=== PATIENT | female | born 1970 | race African-American/Black ===

== ENCOUNTER 2023-10-17 19:41 | Inpatient (IN) | payer MEDICAID, SELFPAY ==
[2023-10-17] VITALS (25 sets, daily range): BP systolic 120–186; BP diastolic 82–117; PULSE 78–103; RESP 10–26; TEMP 36.3–37; O2SAT 94–100
--- NOTE | ~2023-10-17 | CT_ITS ---
CTA chest PE abdomen pel Ordering provider: Kris Nixon DO History: . cardiac arrest . Comparison: None. Technique: CT angiogram chest was performed following timed intravenous injection of contrast. Thin s lice axial images and reformatted coronal images were obtained. Three dimensional reformatted images of the chest were also obtained using a [employer] workstation. Also, CT of the abdomen and pelvis was pe rformed with IV contrast. . Automated exposure control and iterative reconstruction technique were e mployed. The dose-length product was 681.00 mGy-cm. 100 mL Omnipaque 350 was given IV. FINDINGS: CHEST: --PULMONARY ARTERIES: No pulmonary embolus. --VISUALIZED THORACIC INLET: Normal. Endotracheal and nasogastric tube are seen passing through the trachea and the stomach. --MEDIASTINUM: Aorta/coronary arteries: Mild atheromatous disease. Heart/other: The heart is slightly enlarged. Left ventricular hypertrophy is noted. Lymph nodes: No mediastinal or hilar adenopathy. --LUNGS: Bilateral atelectatic changes in the upper lobes posteriorly with right basal subsegmental pneumonia. No pulmonary nodules or masses. No effusion or pneumothorax. --MUSCULOSKELETAL: Bones: Age appropriate degenerative changes of the spine. Superficial soft tissues: The superficial soft tissues are normal. ABDOMEN/PELVIS: --MUSCULOSKELETAL: Superficial soft tissues: The superficial soft tissues are normal. Bones: Age appropriate degenerative changes of the spine. --UPPER ABDOMINAL ORGANS: Liver: Normal. Gallbladder: Normal. Spleen: Normal. Stomach/duodenum: Normal. Pancreas: Normal. Adrenals: Adenoma in the right adrenal measuring 1.2 cm. No follow-up is needed unless clinical pam cations is present. Kidneys: Tiny cyst in the right kidney upper pole. --PELVIC ORGANS: The bladder is underfilled. The uterus and ovaries are unremarkable. --BOWEL AND MESENTERY: Colon: No evidence of diverticulitis. Normal appendix. Small Bowel: Normal. No obstruction. Peritoneum/mesentery: No free air or free fluid. No mesenteric lymphadenopathy. --RETROPERITONEUM: Mild atheromatous disease of the abdominal aorta. No retroperitoneal lymphadenop athy. Small para-aortic lymph nodes. IMPRESSION: CHEST: 1. No pulmonary embolism. 2. Bilateral atelectatic changes in the upper lobes. 3. Bibasilar subsegmental pneumonia more on the right side. 4. Cardiomegaly with left ventricular hypertrophy. ABDOMEN/PELVIS: 1. No acute abdominal process with no evidence of appendicitis, diverticulitis or intestinal obstruc tion. Reviewed, dictated and finalized at location A. IMPRESSION: CHEST: 1. No pulmonary embolism. 2. Bilateral atelectatic changes in the upper lobes. 3. Bibasilar subsegmental pneumonia more on the right side. 4. Cardiomegaly with left ventricular hypertrophy. ABDOMEN/PELVIS: 1. No acute abdominal process with no evidence of appendicitis, diverticulitis or intestinal obstruction.
--- NOTE | ~2023-10-17 | CT_ITS ---
CT cervical spine wo con Ordering provider: Kris Nixon History: . Unresponsive . Comparison: None. Technique: CT of the cervical spine was performed without contrast. Sagittal and coronal reformatted images were also obtained and reviewed. Automated exposure control and iterative reconstruction teodora hnique were employed. The dose-length product was 681.00 mGy-cm. FINDINGS: Endotracheal tube and nasogastric tube is noted. VERTEBRAE: No subluxation or acute fracture. The occipital condyles are intact. Degenerative changes of the spine. DISC SPACES: Narrowing of the disc C5-C6 and C6-C7. Multilevel uncovertebral joint osteoarthritic anastasia nges. Multilevel intervertebral foraminal narrowing. PARASPINOUS SOFT TISSUES: Normal. Atelectatic changes in the lungs versus pneumonia. Emphysematous changes. IMPRESSION: No acute osseous abnormality cervical spine. Reviewed, dictated and finalized at location A.
--- NOTE | ~2023-10-17 | XR_ITS ---
MODIFIED ESOPHAGRAM HISTORY: Assess swallowing function post cardiac arrest and pneumonia. TECHNIQUE: Modified barium esophagram was performed on 10/23/2023. I administered fluoroscopy and perf ormed the exam with speech pathologist. Patient was seated for lateral fluoroscopic imaging for jim stion of thin liquids, pudding, solids and quantified amounts, followed by thin liquids in uncontroll ed amounts. This was recorded on tape. A single fluoroscopic spot image was also recorded. The DAP fo r this procedure was 1.97 Gycm2. The amount of fluoroscopy time used during this procedure was 1.8 mi nutes. FINDINGS: Oral stage: Adequate function. Pharyngeal stage: Trace amount of flash laryngeal penetration without aspiration with uncontrolled th in liquids. Cervical/esophageal stage: Adequate function. IMPRESSION: Trace amount of flash laryngeal penetration without aspiration with uncontrolled thin liq uids. Please correlate with speech pathologist findings and specific feeding recommendations. Reviewed, dictated and finalized at location A. IMPRESSION: Trace amount of flash laryngeal penetration without aspiration with uncontrolled thin liquids. Please correlate with speech pathologist findings and specific feeding recommendations.
--- NOTE | ~2023-10-17 | XR_ITS ---
EXAMINATION: XR chest 1V portable DATE: 10/19/2023 05:44 INDICATION: Pneumonia. Cardiac arrest. TECHNIQUE: A single frontal view of the chest was obtained. COMPARISON: Chest single view 10/18/23, chest CT 10/17/2023 FINDINGS: There are airspace opacities in the mid and lower lung zones. No pleural effusion or pneumo thorax. Cardiomegaly is noted. The nasogastric tube tip is beyond the inferior margin of the radiogra ph, but at least to the stomach. The endotracheal tube tip is 2.7 cm above the brown. IMPRESSION: 1. Worsened airspace opacities in the mid and lower lung zones, consistent with atelectasis versus pn eumonia. 2. Cardiomegaly. Reviewed, dictated and finalized at location E. IMPRESSION: 1. Worsened airspace opacities in the mid and lower lung zones, consistent with atelectasis versus pneumonia. 2. Cardiomegaly.
--- NOTE | ~2023-10-17 | XR_ITS ---
XR chest ET placement Ordering provider: Kris Nixon DO History: 53 years Female with . CARDIAC ARREST . Comparison: None. FINDINGS: MEDIASTINUM: The cardiac silhouette is cardiomegaly. Congestive nicolasa. Endotracheal tube with the tip above the rbown by about 3.5 cm. LUNGS: No pneumothorax. Bilateral interstitial and alveolar ossification suggestive of pulmonary lamonte a. Superimposed infection cannot be excluded. OTHER: No free air under the diaphragm. Nasogastric tube with the tip in the fundus of the stomach and the sidehole at the gastroesophageal j unction. IMPRESSION: Cardiomegaly with cardiac decompensation and pulmonary edema. Underlying infection cannot be excluded . Reviewed, dictated and finalized at location A. IMPRESSION: Cardiomegaly with cardiac decompensation and pulmonary edema. Underlying infect ion cannot be excluded.
--- NOTE | ~2023-10-17 | XR_ITS ---
EXAMINATION: XR chest 1V portable DATE: 10/18/2023 08:24 INDICATION: Cardiac arrest. Mechanical ventilation. TECHNIQUE: A single frontal view of the chest was obtained. COMPARISON: Chest view 10/17/2023, chest CT 10/17/2023 FINDINGS: There air airspace opacities in the mid and lower lung zones. No pleural effusion. Cardiome marcy is noted. The endotracheal tube tip is 4.4 cm above the brown. The nasogastric tube tip is in t he stomach. IMPRESSION: 1. Persistent airspace opacities in the mid and lower lung zones, consistent with pneumonia. 2. Cardiomegaly. Reviewed, dictated and finalized at location A. IMPRESSION: 1. Persistent airspace opacities in the mid and lower lung zones, consistent wi th pneumonia. 2. Cardiomegaly.
--- NOTE | ~2023-10-17 | XR_ITS ---
Portable chest x-ray Comparison: 10/20/2023 Clinical History: Pneumonia Findings: Endotracheal tube and NG tube are in place. There is mild bilateral pulmonary haziness. C ardiomediastinal silhouette is stable. Bones and soft tissues are unremarkable. Impression: Probable mild bilateral pulmonary edema. Support tubes, as above. Reviewed, dictated and finalized at location . Impression: Probable mild bilateral pulmonary edema. Support tubes, as above.
--- NOTE | ~2023-10-17 | XR_ITS ---
EXAMINATION: XR abdomen gastric tube insert DATE: 10/17/2023 19:58 INDICATION: Cardiac arrest. Orogastric tube placement. TECHNIQUE: A supine view of the abdomen and lower chest was obtained for evaluation of feeding tube placement. COMPARISON: None. FINDINGS: Orogastric tube tip in proximal side port in the body of the stomach. No dilated loops of gas-filled bowel in the visualized upper abdomen to suggest obstruction. Opacities in the right lower lung zone which represent atelectasis, pulmonary edema or pneumonia. Cardiomegaly. IMPRESSION: 1. Orogastric tube with tip in proximal side port in the body of the stomach. 2. Opacities in the right lower lung zone which could represent atelectasis or pneumonia. 3. Cardiomegaly. Reviewed, dictated and finalized at location A.
--- NOTE | ~2023-10-17 | XR_ITS ---
Portable chest x-ray Comparison: 10/19/2023 Clinical History: Pneumonia Findings: Endotracheal tube and NG tube are in satisfactory positions. Extensive hazy pulmonary dise ase is present. Cardiomediastinal silhouette is stable. Bones and soft tissues are unremarkable. Impression: Extensive hazy pulmonary disease, similar to prior exam. Support tubes, as above. Reviewed, dictated and finalized at location . Impression: Extensive hazy pulmonary disease, similar to prior exam. Support tubes, as above.
--- NOTE | ~2023-10-17 | XR_ITS ---
Portable chest x-ray Comparison: 10/22/2023 Clinical History: Pneumonia, cardiac arrest Findings: There is improving hazy bibasilar/perihilar airspace disease. Possible minimal right pleur al effusion. Cardiomediastinal silhouette is stable. Bones and soft tissues are unremarkable. Impression: Improving hazy bibasilar/perihilar airspace disease. Minimal right pleural effusion. Reviewed, dictated and finalized at location . Impression: Improving hazy bibasilar/perihilar airspace disease. Minimal right pleural effusion.
--- NOTE | ~2023-10-17 | CT_ITS ---
CT brain wo con Ordering provider: Kris Nixon DO History: 53 years Female with . Unresponsive . Comparison: None. Technique: CT of the head without contrast. The dose-length product was 681 mGy-cm.. FINDINGS: Endotracheal and nasogastric tube are noted. BRAIN PARENCHYMA AND CSF SPACES: No midline shift, mass effect or hemorrhage. The brain parenchyma a nd CSF spaces are otherwise normal. VISUALIZED PARANASAL SINUSES: Left maxillary sinus disease. Bilateral ethmoid sinus disease. MASTOIDS : Well aerated. BONES: The bones appear intact. SOFT TISSUES: Visualized nasopharynx is normal. Superficial soft tissues are normal. IMPRESSION: No acute intracranial findings. Reviewed, dictated and finalized at location A.
--- NOTE | ~2023-10-17 | XR_ITS ---
Portable chest x-ray Comparison: 10/21/2023 Clinical History: Pneumonia, cardiac arrest Findings: Endotracheal tube and NG tube are in satisfactory positions. Small lateral pleural effusio ns are present. There is hazy bibasilar/perihilar airspace disease. Cardiomediastinal silhouette is stable. Bones and soft tissues are unremarkable. Impression: Bibasilar pulmonary edema versus pneumonia. Correlate clinically. Small pleural effusions. Support tubes, as above. Reviewed, dictated and finalized at location . Impression: Bibasilar pulmonary edema versus pneumonia. Correlate clinically. Small pleural effusions. Support tubes, as above.
--- NOTE | 2023-10-17 19:43 | ECG_ITS ---
Test Date: 2023-10-17 19:43:07 Measurements Intervals [place] Rate: 92 P: 62 CT: 169 QRS: -9 QRSD: 154 T: 130 QT: 432 QTc: 537 Interpretive Statements SINUS RHYTHM POSSIBLE RIGHT ATRIAL ENLARGEMENT LEFT ATRIAL ENLARGEMENT RIGHT BUNDLE BRANCH BLOCK ABNORMAL ECG No previous ECG available for comparison Electronically Signed On 10-18-2023 14:20:51 CDT by Casey Lopez D.O.
[2023-10-17] MEDS: FENTANYL 2,500MCG/NS250ML(*CRX 2,500 MCG/250 ML BAG IV CONT (19:52)
--- NOTE | 2023-10-17 19:52 | ED.CPR ---
HPI - CPR General Chief Complaint: Cardiac Arrest/CPR Stated Complaint: arrest Time Seen by Provider: 10/17/23 19:47 Source: EMS Mode of arrival: EMS Limitations: clinical condition History of Present Illness HPI narrative: Patient is a 53-year-old female presents to the emergency department via EMS for a witnessed arrest. Patient was witnessed to collapse by bystander, EMS noted a down time a few minutes prior to arrival and they performed 2 rounds of CPR and 1 shock was advised and patient obtain Sharon, an eye gel was placed, and IO was also placed in addition to a peripheral IV no patient did receive 150 of amiodarone and was transported to the ER. Unknown past medical history. Related Data Allergies Allergy/AdvReac Type Severity Reaction Status Date / Time No Known Allergies Allergy Verified 10/17/23 22:52 Review of Systems Review of Systems: ROS unobtainable: Yes unobtainable due to endotracheal tube, unobtainable due to medical condition and unobtainable due to mental status PMF Past Medical History Medical History (Updated 10/18/23 @ 07:34 by Kris Nixon DO) Anxiety Essential hypertension Comments At time of signature, I have reviewed and agree with nursing past medical, surgical, social and family history unless otherwise noted. Please see the nursing chart for further information. There is no relevant family history pertinent to the presenting complaint. Exam Narrative: CONST: Unresponsive, I-gel in place with bagging, IO in the tibia. HENMT: Head is normocephalic and atraumatic. Moist mucous membranes. EYES: No conjunctival icterus, injection, or pallor. PERRL. Gaze is midline. NECK: Trachea is midline. RESP: Diffuse rales in all lung murphy. CARDIO: Regular rate. Regular rhythm. 2+ DP and radial pulses bilaterally. GI: Nondistended. No tenderness to palpation. Soft. SKIN: No rashes or lesions noted on exposed skin. NEURO: Not withdrawing to noxious stimuli in any extremity. Pupils are 2-3 mm bilaterally equal round reactive to light. Bilateral upper extremities are contracted in decorticate posturing. Not following any commands. EXTREM/MSK/BACK: No pedal edema. No signs of trauma. Course Vital Signs Vital signs: Vital Signs Pulse Rate 86 10/17/23 19:45 Respiratory Rate 15 10/17/23 19:45 Blood Pressure 154/86 H 10/17/23 19:45 Pulse Oximetry 100 10/17/23 19:45 Oxygen Delivery Mechanical Ventilation 10/17/23 19:45 Oxygen Flow Rate 15 10/17/23 19:45 Temperature 96.6 F L 10/18/23 06:01 Pulse Rate 90 10/18/23 06:01 Respiratory Rate 10 L 10/18/23 06:01 Blood Pressure 152/101 H 10/18/23 06:01 Pulse Oximetry 96 10/18/23 06:01 Oxygen Delivery Mechanical Ventilation 10/18/23 05:34 Oxygen Flow Rate 15 10/18/23 04:00 Fraction of Inspired Oxygen 40 10/18/23 05:34 Procedures Intubation Intubation #1: Intubation Date: 10/17/23 Intubation Time: 19:30 Time out performed: No sedative: Etomidate paralytic: Succinylcholine Laryngoscope: fiber optic video scope Tube Size (cm): 7.5 Method of Intubation: orotracheal Number of Attempts: 1 Tube Secured Depth (cm): 22 Tube Secured Location: lips Tube Placement Confirmation: visualized tube passing through cords, equal breath sounds bilaterally, no breath sounds over epigastrium and confirmation by capnometry Patient Tolerated Procedure: no complications Intubation Complications: none MDM - Cardiac Arrest/CPR MDM Narrative Medical decision making narrative: EMR reviewed. Patient presented to the ED via EMS in cardiopulmonary arrest. EMS reports down time a few minutes prior to their arrival, AED shocks x1, interventions I gel and IO and peripheral IV and amiodarone and epinephrine. Patient was placed on the monitor. CPR was continued without interruption in accordance with ACLS guidelines. Airway
[2023-10-17] MEDS: MIDAZOLAM 100MG/NS 100ML(*CRX) 100 MG/100 ML BAG IV CONT (20:07)
[2023-10-17 20:09] LABS: Basophils Absolute Auto 0.1 K/mm3 (0.0-0.1); Basophils Percent Auto 0.7 % (0.2-1.2); Eosinophils Absolute Auto 0.2 K/mm3 (0-0.3); Hematocrit 36.7 % (37.0-47.0); Hemoglobin 11.9 g/dL (12.0-15.0); Immature Granulocyte Absolute 0.05 K/mm3 (0.00-0.031); Immature Granulocyte Percent A 0.6 % (0-0.5); Lymphocytes Absolute Auto 3.48 K/mm3 (0.9-3.2); Lymphocytes Percent Auto 43.4 % (18.3-44.2); Mean Corpuscular HGB Conc 32.4 g/dl (32-36); Mean Corpuscular Hemoglobin 29.3 pg (26-34); Mean Corpuscular Volume 90.4 fl (80-100); Mean Platelet Volume 9.5 fl (7.4-10.4); Monocytes Absolute Auto 0.5 K/mm3 (0.1-0.6); Monocytes Percent Auto 6.1 % (2.6-8.5); Neutrophils Absolute Auto 3.8 K/mm3 (1.3-6.7); Neutrophils Percent Auto 47.2 % (45.5-73.1); Platelet Count Result 387 k/mm3 (150-375); Red Blood Count 4.06 M/mm3 (4.2-5.4); Red Cell Distribution Width 13.6 % (11.5-14.5)
[2023-10-17 20:20] LABS: INR 1.1; Partial Thromboplastin Time 26.7 Seconds (22.3-36.8); Prothrombin Time 14.8 Seconds (11.1-14.7)
[2023-10-17 20:26] LABS: Estimated Glomerular Filt Rate 47
[2023-10-17 20:26] LABS: Acetaminophen < 10 ug/mL (10-30); Alanine Aminotransferase 78 U/L (6-35); Albumin Level 3.7 g/dL (3.5-5.1); Alkaline Phosphatase 70 U/L (38-126); Anion Gap 10 mmol/L (4-12); Aspartate Amino Transferase 182 U/L (14-36); Bilirubin,Total 0.8 mg/dL (0.2-1.3); Blood Urea Nitrogen 20 mg/dL (7-17); CRP 1.6 mg/dL (<1.0); Calcium 8.2 mg/dL (8.4-10.2); Carbon Dioxide 25 mmol/L (22-30); Chloride 105 mmol/L (98-107); Creatine Kinase 126 U/L (30-135); Estimated Glomerular Filt Rate 52; Ethanol < 10 mg/dL (<10); Glucose 148 mg/dL (65-110); Lipase 129 U/L (23-300); Magnesium 1.9 mg/dL (1.6-2.3); Potassium 3.2 mmol/L (3.4-5.0); Salicylate < 1.0 mg/dL (2-20); Sodium 140 mmol/L (137-145)
[2023-10-17 20:36] LABS: NT Pro B Type Natriuretic Pept 7770 pg/mL (19.9-100); Troponin I 0.053 ng/mL (0.000-0.034)
[2023-10-17 20:37] LABS: Lactic Acid Reflex 4.1 mmol/L (0.7-2.0)
[2023-10-17 20:49] LABS: SPREG INTERNAL CONTROL Positive; Serum Qual hCG Negative
[2023-10-17] MEDS: KCL 20 MEQ/SW 100 ML 100 ML 50 MEQ IVPB (21:02)
[2023-10-17] MEDS: AZITHROMYCIN 500 MG/NS 250 ML 500 MG/250 ML BAG 250 MG IVPB (21:29)
[2023-10-17] MEDS: SODIUM CHLORIDE 0.9% IV 1,000 ML 999 ML IV CONT ×2 (21:37→22:33)
[2023-10-17] MEDS: cefTRIAXone 2 GM/NS 100 ML 2 GM/100 ML BAG IVPB (21:43)
[2023-10-17 21:44] LABS: Free T4 Free Thyroxine Reflex 1.06 ng/dL (0.78-2.19)
--- NOTE | 2023-10-17 21:50 | ECG_ITS ---
Test Date: 2023-10-17 20:45:49 Measurements Intervals [place] Rate: 79 P: 62 [place]: 170 QRS: -14 QRSD: 157 T: 118 QT: 499 QTc: 574 Interpretive Statements SINUS RHYTHM POSSIBLE RIGHT ATRIAL ENLARGEMENT LEFT ATRIAL ENLARGEMENT RIGHT BUNDLE BRANCH BLOCK BORDERLINE ST-T WAVE ABNORMALITY- ANTEROLATERAL LEADS ABNORMAL ECG Compared to ECG 10/17/2023 19:43:07 NO SIGNIFICANT CHANGE Electronically Signed On 10-18-2023 14:21:38 CDT by Casey Lopez D.O.
--- NOTE | 2023-10-17 22:00 | ECG_ITS ---
Test Date: 2023-10-17 21:29:34 Measurements Intervals [place] Rate: 79 P: 61 [place]: 164 QRS: -2 QRSD: 109 T: 152 QT: 463 QTc: 532 Interpretive Statements SINUS RHYTHM LEFT ATRIAL ENLARGEMENT LEFT VENTRICULAR HYPERTROPHY AND ST-T CHANGE ST-T WAVE ABNORMALITY IN ANTEROLATERIOR LEADS- CONSIDER ISCHEMIA BASELINE ARTIFACT- II, V4-V5 ABNORMAL ECG No previous ECG available for comparison Electronically Signed On 10-18-2023 07:34:44 CDT by Casey Lopez D.O.
[2023-10-17 22:14] LABS: Glucose Point of Care 79 mg/dl (65-105)
[2023-10-17 22:19] LABS: Alveolar/Arterial O2 Gradient 220.1 mmHg; Base Excess ABG -4.5 mEq/l (+/-2.0); Fractional Inspired Oxygen 50 %; HCO3 ABG 20.5 mEq/l (22.0-26.0); Oxygen Content ABG 16.2 %vol (16.0-22.0); Oxygen Saturation ABG 96.9 % (95.0-100.0); PCO2 ABG 37.6 mmHg (35.0-45.0); PO2 ABG 94.1 mmHg (80.0-100.0); PO2 FiO2 Ratio Arterial Blood 1.88 %; Total Hemoglobin 11.9 g/dL (12.0-18.0); pH ABG 7.354 (7.350-7.450)
[2023-10-17 22:20] LABS: Device VENTILATOR; Modified Allen's Test Pass; Site Drawn RIGHT RADIAL
[2023-10-17 22:21] LABS: Arterial Blood Gas PEEP 5 cmH2O; Arterial Blood Gas Tidal Volume 400 ml; Arterial Blood Gas Vent Mode CMV; Arterial Blood Gas Ventilator rate 15 /MIN
[2023-10-17 22:22] LABS: Creatine Kinase 128 U/L (30-135)
[2023-10-17 22:24] LABS: Total Triiodothyronine (T3) 1.05 NG/ML (0.97-1.69)
[2023-10-17 22:30] LABS: Influenza A QL RT-PCR Negative (Negative); Influenza B QL RT-PCR Negative (Negative); RSV RNA, RT-PCR Negative (Negative); SARS-CoV-2 RNA PCR Negative (Negative)
[2023-10-17] MEDS: RAPID SEQUENCE INTUBATION KIT 1 EACH (22:33)
--- NOTE | 2023-10-17 22:34 | PC.NURSE ---
7.5 ETT tube placed by Dr. Nixon at 1942 with 23 at the lip. Respiratory at bedside. Confirmed with colormetric device, auscultation by EDP, and Xray.
[2023-10-17 23:05] LABS: Reflex Lactic Acid Yes or No Add Lactic
[2023-10-17 23:14] LABS: MRSA (PCR) NOT DETECTED (NOT DETECTE)
--- NOTE | 2023-10-17 23:47 | ADMGEN ---
This patient, Fouzia Mccullough, was admitted to Intensive Care Unit-1 at 2315. Patient/family oriented to hospital policies and general routines including ID bracelet, bed and alarms, visiting hours, pain management, procedures, bathroom and other care routines, personal items, smoking policy, room service/diet, and visiting hours. Information on how to activate the Rapid Response Team has been discussed. Patient/Family are encouraged to report perceived risks to care and to ask questions if they do not understand what they are told or what they should do.
--- NOTE | 2023-10-17 23:47 | PC.NURSE ---
[id number] Alvarado stated he wants ICU to have hypothermia protocol. Clarified goal temperature and Dr Alvarado states 36C.
[2023-10-17] MEDS: HEPARIN SOD/D5W 100 UNITS/ML 25,000 UNITS/250 ML BAG 10 UNITS IV CONT (23:51)
[2023-10-17] MEDS: VANCOMYCIN 1,250 MG/NS 250 ML 1,250 MG/250 ML BAG 166.67 MG IVPB (23:58)
[2023-10-18] VITALS (76 sets, daily range): BP systolic 106–179; BP diastolic 80–142; PULSE 72–101; RESP 10–21; TEMP 34.4–37.7; O2SAT 96–100
[2023-10-18] MEDS: MINERAL OIL/WHITE PETROLATUM OINTMENT 1 APPLIC EACH EYE ×3 (00:27→21:11)
[2023-10-18 00:31] LABS: Appearance Urine Clear (Clear); Bacteria Urine Rare /hpf; Bilirubin Urine Negative (Negative); Blood Urine 1+ (Negative); Color Urine Yellow (Yellow); Glucose Urine UA Trace mg/dL (Negative); Ketones Urine Negative (Negative); Leukocyte Esterase Ur Negative LEU/UL (Negative); Nitrate Urine Negative (Negative); Protein Urine 2+ mg/dL (Negative); Specific Grav Ur 1.018 (1.001-1.035); Squamous Epithelial Cell Urine Occasional /hpf (Few); Urobilinogen Urine 0.2 mg/dL (<2.0)
[2023-10-18 00:34] LABS: Need Manual Microscopic Reviewed
[2023-10-18 00:45] LABS: Amphetamine Screen Urine Negative (Negative); Barbiturate Screen Urine Negative (Negative); Benzodiazepines Screen Urine Positive (Negative); Cannabinoid Screen Urine Negative (Negative); Cocaine Screen Urine Negative (Negative); Methadone Screen Urine Negative (Negative); Opiate Screen Urine Negative (Negative); Phencyclidine Screen Urine Negative (Negative)
[2023-10-18 00:46] LABS: INR 1.1; Prothrombin Time 14.9 Seconds (11.1-14.7)
[2023-10-18 00:47] LABS: Partial Thromboplastin Time 25.5 Seconds (22.3-36.8)
[2023-10-18 01:03] LABS: Alanine Aminotransferase 126 U/L (6-35); Albumin Level 4.7 g/dL (3.5-5.1); Alkaline Phosphatase 101 U/L (38-126); Anion Gap 12 mmol/L (4-12); Aspartate Amino Transferase 252 U/L (14-36); Bilirubin,Total 0.6 mg/dL (0.2-1.3); Blood Urea Nitrogen 19 mg/dL (7-17); Calcium 8.5 mg/dL (8.4-10.2); Carbon Dioxide 23 mmol/L (22-30); Chloride 108 mmol/L (98-107); Creatine Kinase 185 U/L (30-135); Estimated CRCL calculation 49 ml/min; Estimated Glomerular Filt Rate 44; Glucose 103 mg/dL (65-110); Magnesium 2.1 mg/dL (1.6-2.3); Potassium 3.4 mmol/L (3.4-5.0); Sodium 143 mmol/L (137-145)
[2023-10-18 01:05] LABS: Lactic Acid Reflex 5.5 mmol/L (0.7-2.0)
[2023-10-18 01:06] LABS: Add Urine Microscopic? YES
[2023-10-18 01:07] LABS: Amphetamine Screen Urine Negative (Negative); Barbiturate Screen Urine Negative (Negative); Benzodiazepines Screen Urine Positive (Negative); Cocaine Screen Urine Negative (Negative); Methadone Screen Urine Negative (Negative); Opiate Screen Urine Negative (Negative)
[2023-10-18 01:08] LABS: Cannabinoid Screen Urine Negative (Negative); Phencyclidine Screen Urine Negative (Negative)
[2023-10-18 01:15] LABS: Glucose Point of Care 105 mg/dl (65-105)
[2023-10-18 01:17] LABS: Troponin I 0.081 ng/mL (0.000-0.034)
[2023-10-18] MEDS: VANCOMYCIN 1,250 MG/NS 250 ML 1,250 MG/250 ML BAG 166.67 MG IVPB (01:35)
[2023-10-18 02:14] LABS: Alveolar/Arterial O2 Gradient 179.2 mmHg; Base Excess ABG -1.9 mEq/l (+/-2.0); Carboxyhemoglobin 0.2 % THb (0-2.0); Fractional Inspired Oxygen 50 %; HCO3 ABG 25.5 mEq/l (22.0-26.0); Oxygen Content ABG 18.4 %vol (16.0-22.0); Oxygen Saturation ABG 97.7 % (95.0-100.0); Oxyhemoglobin 97.8 % THb (90.0-100.0); PCO2 ABG 54.5 mmHg (35.0-45.0); PO2 FiO2 Ratio Arterial Blood 2.32 %; Total Hemoglobin 13.3 g/dL (12.0-18.0)
[2023-10-18 02:16] LABS: Device VENTILATOR; Modified Allen's Test Pass; Site Drawn RIGHT RADIAL; pH ABG 7.288 (7.350-7.450)
[2023-10-18 02:17] LABS: Arterial Blood Gas PEEP 5 cmH2O; Arterial Blood Gas Tidal Volume 400 ml; Arterial Blood Gas Vent Mode CMV; Arterial Blood Gas Ventilator rate 15 /MIN
[2023-10-18 03:06] LABS: Glucose Point of Care 97 mg/dl (65-105)
[2023-10-18 03:06] LABS: Glucose Point of Care 104 mg/dl (65-105)
[2023-10-18 03:36] LABS: Basophils Absolute Auto 0.1 K/mm3 (0.0-0.1); Basophils Percent Auto 0.4 % (0.2-1.2); Eosinophils Percent Auto 0.1 % (0-4.4); Hematocrit 41.6 % (37.0-47.0); Hemoglobin 12.9 g/dL (12.0-15.0); Immature Granulocyte Absolute 0.06 K/mm3 (0.00-0.031); Immature Granulocyte Percent A 0.5 % (0-0.5); Lymphocytes Absolute Auto 1.48 K/mm3 (0.9-3.2); Lymphocytes Percent Auto 11.4 % (18.3-44.2); Mean Corpuscular Hemoglobin 29.3 pg (26-34); Mean Corpuscular Volume 94.3 fl (80-100); Mean Platelet Volume 9.4 fl (7.4-10.4); Monocytes Absolute Auto 0.9 K/mm3 (0.1-0.6); Monocytes Percent Auto 7.3 % (2.6-8.5); Neutrophils Absolute Auto 10.4 K/mm3 (1.3-6.7); Neutrophils Percent Auto 80.3 % (45.5-73.1); Platelet Count Result 337 k/mm3 (150-375); Red Blood Count 4.41 M/mm3 (4.2-5.4); White Blood Count 12.9 K/mm3 (4.5-10.0)
[2023-10-18] MEDS: SODIUM CHLORIDE 0.9% IV 1,000 ML 150 ML IV CONT (03:37)
[2023-10-18 03:46] LABS: Hemoglobin A1C 5.7 % (<5.7); Lactic Acid Reflex 5.1 mmol/L (0.7-2.0)
--- NOTE | 2023-10-18 03:53 | PM.IMHP ---
H&P: HPI History of Present Illness Date/Time: 10/18/23 03:53 Chief Complaint: Cardiac arrest Narrative: This is a 53-year-old female with PMH obesity, hypertension, prior tobacco abuse, anxiety who presents to [facility] post cardiac arrest. History is taking from the ER physician, and the daughter Heather. EMS run sheet currently unavailable for review. No historical records in our system. The patient lives at home, her daughter lives very close by. They were together today. The patient was sitting on a couch and she reported not feeling well. Moments later when the daughter returned from another room the patient was unresponsive on the couch. EMS was summoned. The patient was down for few minutes until CPR was started. Two rounds and 1 shock, epinephrine, 150 mg of amiodarone administered and ROSC obtained. In [facility] the supraglottic airway was exchanged for ETT and OG tube. In addition, 2 L normal saline bolus administered along with vancomycin, ceftriaxone 2 g IV x1, azithromycin 500 mg IV x1, 20 mEq potassium IV, etomidate and succinylcholine during intubation. WBC 8000, hemoglobin 11.9, platelets 387, INR 1.1, ABG post intubation revealing 7.35/37.6/94/20.5, potassium 3.2, BUN 20, creatinine 1.1, lactic acid 4.1, AST 182, ALT 78, troponin 0.053, CRP 1.6, BNP 7000, magnesium 1.9 Chest x-ray demonstrated cardiac decompensation and pulmonary edema, subsequent CTA chest abdomen pelvis demonstrated no acute abdominal process, no PE, bilateral atelectatic changes in the upper lobes, bibasilar subsegmental pneumonia more on the right side, cardiomegaly with LVH, cervical spine CT no acute abnormality, head CT no acute abnormality. Three EKGs were performed. Initial EKG demonstrated sinus rhythm with T-wave inversions in lead 1 aVL V2 V3 V4 V[address] ST depressions in lead V4 V5. Second EKG demonstrated sinus rhythm with similar T-wave inversions and mildly improve ST depressions in lead V3 V4 and V5. Third EKG demonstrated sinus rhythm with T-wave inversions in V4 V5 V6 [address] aVL [address] again improved [address] depressions only in V4 and V5. Subsequently surgical garment fitter contacted and targeted temperature management to 36?C instituted.. Cardiology also notified, no immediate plans for catheterization. Advised to start metoprolol 25 mg Q 12. 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 Reportedly for 1 year the patient has had intermittent chest palpitations as well as chest pain and shortness of breath when lying down. No edema. The patient had sought out care with her PCP and a sleep study was ordered but not yet completed. No other testing was planned yet. The patient did have chest pain 3 days prior to this event. She has had high blood pressure for a long time. She is a previous smoker. No reported alcohol use, or energy drinks. Patient drinks 3 cups of coffee a day and takes a multivitamin and blood pressure medications. Spoke briefly with Dr. Alvarado about AC in the setting of TTM, we agreed it would be appropriate. Spoke with the daughter Heather about the possibility of underlying coronary disease and possible recent cardiac events. Discussed the risk of bleeding in the setting of targeted temperature management to which the daughter agreed heparin GTT is appropriate with all things considered. Admitted on 10/18/2023 with post cardiac arrest and NSTEMI. Review of Systems Review of Systems: ROS unobtainable: Yes unobtainable due to endotracheal tube and unobtainable due to medical condition [facility] Past Medical History Medical History (Updated 10/18/23 @ 04:30 by Kelly Blanc MD) Anxiety Essential hypertension Meds Home Medications and Allergies Allergies Allergy/AdvReac Type Severity Reaction Status Date / Time No Known Allergies Allergy Verified 10/17/23 22:52
[2023-10-18] MEDS: SODIUM CHLORIDE 0.9% IV 500 ML 999 ML IV CONT (04:07)
[2023-10-18] MEDS: MIDAZOLAM 100MG/NS 100ML(*CRX) 100 MG/100 ML BAG 10 MG IV CONT (04:16)
[2023-10-18 04:21] LABS: Troponin I 0.097 ng/mL (0.000-0.034)
[2023-10-18 04:39] LABS: Glucose Point of Care 80 mg/dl (65-105)
[2023-10-18 05:28] LABS: Alveolar/Arterial O2 Gradient 144.4 mmHg; Base Excess ABG -4.9 mEq/l (+/-2.0); Carboxyhemoglobin 0.3 % THb (0-2.0); Fractional Inspired Oxygen 40 %; Methemoglobin ABG 0.3 %THb (0-1.5); Oxygen Content ABG 17.7 %vol (16.0-22.0); Oxygen Saturation ABG 96.3 % (95.0-100.0); Oxyhemoglobin 96.1 % THb (90.0-100.0); PCO2 ABG 48.3 mmHg (35.0-45.0); PO2 ABG 94.3 mmHg (80.0-100.0); PO2 FiO2 Ratio Arterial Blood 2.36 %; Reduced Hemoglobin 3.3 %THb (0-5.0)
[2023-10-18 05:30] LABS: Device VENTILATOR; Modified Allen's Test Pass; Site Drawn RIGHT RADIAL; pH ABG 7.277 (7.350-7.450)
[2023-10-18 05:31] LABS: Arterial Blood Gas PEEP 5 cmH2O; Arterial Blood Gas Tidal Volume 450 ml; Arterial Blood Gas Vent Mode CMV; Arterial Blood Gas Ventilator rate 15 /MIN
[2023-10-18 05:43] LABS: Glucose Point of Care 87 mg/dl (65-105)
--- NOTE | 2023-10-18 06:00 | ECG_ITS ---
Test Date: 2023-10-18 07:26:02 Measurements Intervals [place] Rate: 96 P: 61 ID: 163 QRS: -6 QRSD: 115 T: 134 QT: 411 QTc: 519 Interpretive Statements SINUS RHYTHM POSSIBLE RIGHT ATRIAL ENLARGEMENT LEFT ATRIAL ENLARGEMENT LEFT VENTRICULAR HYPERTROPHY AND ST-T CHANGE BASELINE ARTIFACT- I, II, III, AVR, AVL, AVF, V1-V6 BORDERLINE ECG Compared to ECG 10/17/2023 21:29:34 ST-T WAVE ABNORMALITY NO LONGER PRESENT Electronically Signed On 10-18-2023 07:51:19 CDT by Casey Lopez D.O.
[2023-10-18 06:27] LABS: Glucose Point of Care 68 mg/dl (65-105)
[2023-10-18 06:29] LABS: Partial Thromboplastin Time 47.4 Seconds (22.3-36.8)
[2023-10-18] MEDS: DEXTROSE 50% 25 GM/50 ML SYRINGE IV PUSH (06:31)
[2023-10-18 06:39] LABS: Alanine Aminotransferase 105 U/L (6-35); Albumin Level 4.4 g/dL (3.5-5.1); Alkaline Phosphatase 95 U/L (38-126); Anion Gap 12 mmol/L (4-12); Aspartate Amino Transferase 174 U/L (14-36); Bilirubin,Total 0.6 mg/dL (0.2-1.3); Blood Urea Nitrogen 18 mg/dL (7-17); Calcium 8.1 mg/dL (8.4-10.2); Carbon Dioxide 23 mmol/L (22-30); Chloride 109 mmol/L (98-107); Cholesterol 170 mg/dL (0-200); Estimated CRCL calculation 59 ml/min; Estimated Glomerular Filt Rate 57; Glucose 87 mg/dL (65-110); HDL Direct 53 mg/dL; Potassium 3.3 mmol/L (3.4-5.0); Sodium 144 mmol/L (137-145); Triglycerides 63 mg/dL (<150)
[2023-10-18 06:41] LABS: Lactic Acid Reflex 4.9 mmol/L (0.7-2.0)
[2023-10-18 06:49] LABS: LDL Cholesterol Direct 79 mg/dL
[2023-10-18 06:53] LABS: Creatine Kinase 181 U/L (30-135)
[2023-10-18] MEDS: DEXTROSE 5%/0.9% SOD CHL 1,000 ML 100 ML IV CONT (07:26)
[2023-10-18] MEDS: levETIRAcetam 1000MG/NACL100ML 1,000 MG/100 ML BAG 400 MG IVPB (07:29)
[2023-10-18 07:32] LABS: Triglycerides 64 mg/dL (<150)
[2023-10-18] MEDS: HEPARIN SODIUM 5,000 UNITS/ML VIAL 4000 UNITS IV PUSH (07:36)
[2023-10-18 07:44] LABS: Glucose Point of Care 96 mg/dl (65-105)
[2023-10-18] MEDS: PROPOFOL IV EMULSION 100 ML 3.15 MG IV CONT (07:49)
--- NOTE | 2023-10-18 08:19 | WPDPROCEDUR ---
Procedures Central Line Placement Right Femoral: Central Line Date: 10/18/23 Central Line Time: 08:20 Performed Emergently - Given emergent patient condition, temporal constraints may have precluded informed consent.: Yes Consent: I have discussed with the patient and/or surrogate, the non-emergent placement of a central venous catheter, including its clinical necessity/indication and associated potential risks and complications. The patient and/or surrogate understand(s) and acknowledge(s) the need to proceed with central venous catheter insertion as an important element of the patient's clinical management. Time Out Performed: Yes Patient Position: supine Patient placed on monitor/pulse ox: Yes Provider Prep: mask, sterile gown, sterile gloves, Max. sterile barrier precautions, cap and hand hygiene with conventional soap/water or alcohol based hand rub Central line prep: 2% Chlorhexidine scrub Local anesthesia used: lidocaine 1% Amount of anesthesia used (ml): 3 Sterile US Technique with sterile gel/sterile probe covers: Yes Central line lumen inserted: triple [place]: 7 Length (cm): 20 Depth of Insertion (cm): 20 Post Procedure: sutured in place, good blood return, all ports aspirated, flushed, capped, transparent dressing, hemostatic product, antimicrobial product, securement product and aseptic technique maintained throughout procedure Post procedure x-ray: other (not applicable) Patient tolerated procedure: well Complications: none
--- NOTE | 2023-10-18 08:22 | WPDCNINT ---
Assessment and Plan Assessment and plan (1) Cardiac arrest: Code(s): I46.9 - Cardiac arrest, cause unspecified Status: Acute Assessment and Plan: Patient presented with the VFib arrest, was defibrillated in the field, given amiodarone infusion, 2 rounds of CPR before return of spontaneous circulation. CPR was started after EMS arrived at home which was few minutes after they were called. -patient currently on target temperature management, as reached 36? centigrade at 3:45 a.m. on 10/18/2023 -cardiology has been consulted -likely cause could be related to ischemic heart disease, hypoxia related to pneumonia, CHF, electrolyte abnormalities -cardiology has been consulted -started patient on Keppra for seizure prophylaxis CT scan of the brain with no acute intracranial finding. CT of the cervical spine showed no acute osseous abnormality of the cervical spine. (2) Acute respiratory failure: Code(s): J96.00 - Acute respiratory failure, unspecified whether with hypoxia or hypercapnia Status: Acute Assessment and Plan: Acute respiratory failure in light of cardiac arrest -pneumonia on CTA, no pulmonary embolism -continue CMV mode of ventilation -chest x-ray and ABGs reviewed, ventilator adjusted -repeat ABGs -will start bronchodilators -continue antibiotics -sedated with fentanyl and Versed infusion, will start patient on propofol and wean off fentanyl and Versed CTA chest abdomen and pelvis: No pulmonary embolism, bilateral atelectatic changes in the upper lobes, bibasilar subsegmental pneumonia more on the right side, cardiomegaly with LVH, no acute abdominal process with no evidence of appendicitis, diverticulitis or intestinal obstruction. (3) Severe sepsis: Code(s): A41.9 - Sepsis, unspecified organism; R65.20 - Severe sepsis without septic shock Status: Acute Assessment and Plan: Patient with cardiac arrest, lactic acidosis, infiltrates, pneumonia on CTA and chest x-ray -started on azithromycin, ceftriaxone and vancomycin (10/16) -10/16: Blood cultures obtained and pending -10/17: Urine culture obtained and pending -10/17: Will order sputum culture -continue to monitor lactic acidosis which is likely related to cardiac arrest, decreased perfusion, hypoxia -patient has received adequate amount of IV fluids, -continue maintenance IV fluids for now, switched fluids to D5 normal saline since patient's blood sugars were low (4) RANI (acute kidney injury): Code(s): N17.9 - Acute kidney failure, unspecified Status: Acute Assessment and Plan: Acute kidney injury, creatinine 1.50 on admission -received adequate IV fluids -urine output has been adequate -repeat creatinine this morning was 1.20 -continue maintenance IV fluids -monitor renal function, electrolytes and urine output (5) Electrolyte imbalance: Code(s): E87.8 - Other disorders of electrolyte and fluid balance, not elsewhere classified Status: Acute Assessment and Plan: Will replace potassium since patient had VFib arrest (6) Essential hypertension: Code(s): I10 - Essential (primary) hypertension Status: Acute Assessment and Plan: History of essential hypertension, currently on metoprolol per Cardiology (7) Pneumonia: Code(s): J18.9 - Pneumonia, unspecified organism Status: Acute Assessment and Plan: Continue treatment and antibiotics as above (8) Elevated troponin: Code(s): R79.89 - Other specified abnormal findings of blood chemistry Status: Acute Assessment and Plan: Elevated troponins, EKG did not show any ST elevation -patient is on heparin infusion -cardiology following the patient Plan DVT prophylaxis: Heparin infusion Stress ulcer prophylaxis: Protonix Nutrition: NPO Lines: Right femoral central line was inserted on 10/18/2023 Code Status: Full code Critical Care Time Spent: 57 minutes Due to a hig
[2023-10-18] MEDS: PANTOPRAZOLE SODIUM IV 40 MG VIAL IV PUSH ×2 (08:39→21:12)
[2023-10-18] MEDS: KCL 40 MEQ/WATER 100 ML 100 ML 25 ML IVPB ×2 (08:46→17:03)
--- NOTE | 2023-10-18 09:05 | PM.CNCAR ---
Assessment and Plan Assessment and plan (1) Cardiac arrest: Code(s): I46.9 - Cardiac arrest, cause unspecified Status: Acute Plan This is a 53-year-old lady who has been resuscitated from out of hospital ventricular fibrillation. There is no evidence of acute coronary event to cost this. He does have significant hypertension as risk factors for coronary disease. She also had appears to have impressive left ventricular hypertrophy by both echocardiographic and electrocardiographic criteria. Most likely the patient has previously undiagnosed hypertrophic cardiomyopathy and has had a or cardiac arrest/malignant arrhythmia as result of this. He has been placed on beta-kenya therapy which is appropriate and further workup/recommendations will be determined by her neurological recovery. Given her and initial evidence of LVH and likely hypertrophic cardiomyopathy if he makes a good neurological recovery she will be need to be transferred for electrophysiology consultation and defibrillator implantation for secondary prevention. Cale Mcintosh MD [facility] History of Present Illness History of Present Illness Consult date/time: 10/18/23 09:05 Reason For Visit: cardiac arrest Narrative: This is a 53-year-old woman I am seeing at the request of the hospitalist because of a ventricular fibrillation arrest which occurred outside of the hospital yesterday evening. The patient was in her home apparently with her daughter visiting and was found to be unresponsive by the daughter who left the room in came back a short time later. 911 was called and she was found to be in ventricular fibrillation and resuscitation efforts ensued. She had 2 rounds of ACLS protocol with CPR, defibrillation and epinephrine before spontaneous circulation was restored. She was brought to the emergency room at [place] where she was intubated and placed on ventilator support. She had 4 electrocardiograms done in the emergency room none of which show evidence of ST elevation CA. I was contacted last night on the phone about the situation at that point. Since there was no evidence of STEMI the decision was made not to bring her to the cardiac catheterization lab as an emergency. She apparently does not have any prior cardiac history she does have a history of significant hypertension and is obese with BMI of 37. There were some questionable mention in the chart of sleep apnea. The patient has electrocardiograms and my review demonstrate impressive evidence of left ventricular hypertrophy with secondary repolarization abnormality. Troponin levels are slightly elevated at 0.097. Echocardiogram being done at bedside demonstrates impressive left ventricular hypertrophy with asymmetrical septal thickening. The study is being done as I entered the room to see her so obviously I have not performed a formal reading at this point. Since she is intubated on the ventilator in the ICU and on hypothermia protocol obviously no additional history is available at this time Review of Systems Review of Systems: ROS unobtainable: Yes unobtainable due to endotracheal tube and unobtainable due to medical condition PMFSH Past Medical History Medical History (Updated 10/18/23 @ 08:39 by Favio Alvarado MD) Anxiety Essential hypertension Meds Home Medications and Allergies Allergies Allergy/AdvReac Type Severity Reaction Status Date / Time No Known Allergies Allergy Verified 10/17/23 22:52 Vital Signs Vital Signs - 24 hr 10/17/23 19:45 10/17/23 19:52 10/17/23 20:07 Temperature Pulse Rate 86 88 84 Respiratory Rate 15 15 15 Blood Pressure 154/86 H Pulse Oximetry 100 Oxygen Delivery Oxygen Flow Rate Fraction of Inspired Oxygen 10/17/23 20:50 10/17/23 19:45 10/17/23 21:42 Temperature 36.3 C L Pulse Rate 89 78 Respiratory Rate 15 Blood Pressure 128/90 Pulse Oximetry 100 100 100 Oxygen Delivery Mechanical Ventilation Mechani
[2023-10-18 09:16] LABS: Glucose Point of Care 91 mg/dl (65-105)
[2023-10-18 09:16] LABS: Glucose Point of Care 85 mg/dl (65-105)
[2023-10-18] MEDS: LACTATED RINGERS 1,000 ML 999 ML IV CONT (09:24)
[2023-10-18] MEDS: PERFLUTREN LIPID MICROSPHERES 1.5 ML VIAL DILUTED TO 10 ML TOTAL VOLUME IV PUSH (09:29)
--- NOTE | 2023-10-18 09:29 | IVDEFINITY ---
Prior to administration of IV Definity the patient was educated on the risks and benefits of the imaging enhancing agent including potential adverse side effects. The patient verbalized understanding. Allergies were verified. No exclusion criteria were identified and at least one of the following inclusion criteria were met: 1) physician request, 2) patient technically difficult to image (per the [place] [employer] guidelines of two or more segments not discernable within the apical view), or 3) questionable left ventricular function. ?
[2023-10-18 09:37] LABS: Alveolar/Arterial O2 Gradient 140.6 mmHg; Base Excess ABG -1.7 mEq/l (+/-2.0); Fractional Inspired Oxygen 40 %; HCO3 ABG 23.9 mEq/l (22.0-26.0); Oxygen Content ABG 16.9 %vol (16.0-22.0); Oxygen Saturation ABG 97.9 % (95.0-100.0); Oxyhemoglobin 97.5 % THb (90.0-100.0); PO2 FiO2 Ratio Arterial Blood 2.78 %; Total Hemoglobin 12.2 g/dL (12.0-18.0); pH ABG 7.353 (7.350-7.450)
[2023-10-18 09:38] LABS: Modified Allen's Test Pass; Site Drawn LEFT RADIAL
[2023-10-18 09:39] LABS: Arterial Blood Gas Vent Mode CMV; Arterial Blood Gas Ventilator rate 20 /MIN; Device VENTILATOR
[2023-10-18 09:40] LABS: Arterial Blood Gas PEEP 5 cmH2O; Arterial Blood Gas Pressure Support 0 cmH2O; Arterial Blood Gas Tidal Volume 420 ml
[2023-10-18] MEDS: IPRATROPIUM 0.5 MG/ALBUTEROL SULFATE 2.5 MG AMPUL.NEB 3 ML INHALATION ×3 (09:48→20:10)
[2023-10-18] MEDS: DEXTROSE 5%/0.45% SOD CHL 1,000 ML 100 ML IV CONT ×2 (10:22→19:01)
[2023-10-18 10:31] LABS: Glucose Point of Care 83 mg/dl (65-105)
--- NOTE | 2023-10-18 11:01 | PM.IMPN ---
Progress Note: A&P Assessment and Plan (1) Cardiac arrest: Code(s): I46.9 - Cardiac arrest, cause unspecified Status: Acute Assessment and Plan: Patient presented with the VFib arrest, was defibrillated in the field, given amiodarone infusion, 2 rounds of CPR before return of spontaneous circulation. CPR was started after EMS arrived at home which was few minutes after they were called. CT scan of the brain with no acute intracranial finding. CT of the cervical spine showed no acute osseous abnormality of the cervical spine. Etiology:consider ischemic heart disease, hypoxia related to pneumonia, CHF, electrolyte abnormalities Patient started on target temperature management, as reached 36? centigrade at 3:45 a.m. on 10/18/2023 -cardiology has been consulted -started patient on Keppra for seizure prophylaxis (2) Acute respiratory failure: Code(s): J96.00 - Acute respiratory failure, unspecified whether with hypoxia or hypercapnia Status: Acute Assessment and Plan: Acute respiratory failure in light of cardiac arrest CTA chest, abdomen and pelvis: No pulmonary embolism, bilateral atelectatic changes in the upper lobes, bibasilar subsegmental pneumonia more on the right side, cardiomegaly with LVH, no acute abdominal process with no evidence of appendicitis, diverticulitis or intestinal obstruction. Resp failure related to cardiac arrest, PNA. Continue antibiotics and bronchodilators Continue MV. Sedation being adjusted. (3) Severe sepsis: Code(s): A41.9 - Sepsis, unspecified organism; R65.20 - Severe sepsis without septic shock Status: Acute Assessment and Plan: Patient with cardiac arrest, lactic acidosis, infiltrates, pneumonia on CTA Patient has received adequate amount of IV fluids Started on azithromycin, ceftriaxone and vancomycin (10/16) -10/16: Blood cultures obtained and pending -10/17: Urine culture obtained and pending -10/17: Will order sputum culture Continue to monitor lactic acidosis which is likely related to cardiac arrest, decreased perfusion, hypoxia Continue maintenance IV fluids for now, switched fluids to D5 normal saline since patient's blood sugars were low Consider covering for aspiration since patient down for a time before EMS called (4) RANI (acute kidney injury): Code(s): N17.9 - Acute kidney failure, unspecified Status: Acute Assessment and Plan: Acute kidney injury, creatinine 1.1 on admission but climbed to 1.5 She has received adequate IV fluids Excellent UOP. Repeat creatinine 1.20 -continue maintenance IV fluids -monitor renal function, electrolytes and urine output (5) Essential hypertension: Code(s): I10 - Essential (primary) hypertension Status: Acute Assessment and Plan: History of essential hypertension, currently on metoprolol per Cardiology BP stable. (6) Pneumonia: Code(s): J18.9 - Pneumonia, unspecified organism Status: Acute Assessment and Plan: As above WBC higher related to stress response. Follow. Continue treatment plan. (7) Elevated troponin: Code(s): R79.89 - Other specified abnormal findings of blood chemistry Status: Acute Assessment and Plan: Elevated troponins, EKG did not show any ST elevation -patient is on heparin infusion -cardiology following the patient Echo ordered (8) Elevated transaminase level: Code(s): R74.01 - Elevation of levels of liver transaminase levels Status: Acute Assessment and Plan: AST/ALT elevated on admission related to shock liver, hypoperfusion. Levels better today. Follow Plan DVT prophylaxis: Heparin infusion Stress ulcer prophylaxis: Protonix Nutrition: NPO Lines: Right femoral central line was inserted on 10/18/2023 Code Status: Full code Subjective Date/time seen: 10/18/23 11:01 Interval history: 53yo female with HTN and anxi
[2023-10-18 12:18] LABS: INR 1.3; Prothrombin Time 16.4 Seconds (11.1-14.7)
[2023-10-18 12:18] LABS: Glucose Point of Care 85 mg/dl (65-105)
[2023-10-18 12:18] LABS: Glucose Point of Care 82 mg/dl (65-105)
[2023-10-18 13:08] LABS: Partial Thromboplastin Time 183.8 Seconds (22.3-36.8)
[2023-10-18] MEDS: CENTRAL LINE FLUSH 10 ML IV PUSH ×2 (13:16→22:00)
[2023-10-18 13:24] LABS: Glucose Point of Care 76 mg/dl (65-105)
--- NOTE | 2023-10-18 14:00 | ECG_ITS ---
Test Date: 2023-10-18 13:56:53 Measurements Intervals [place] Rate: 92 P: 59 IN: 171 QRS: -6 QRSD: 114 T: 151 QT: 433 QTc: 537 Interpretive Statements SINUS RHYTHM LEFT ATRIAL ENLARGEMENT LEFT VENTRICULAR HYPERTROPHY AND ST-T CHANGE BASELINE ARTIFACT- I, III, AVR, AVL, V1-V2 BORDERLINE ECG Compared to ECG 10/18/2023 07:26:02 No significant changes Electronically Signed On 10-18-2023 14:22:14 CDT by Casey Lopez D.O.
[2023-10-18] MEDS: PROPOFOL IV EMULSION 100 ML 15.75 MG IV CONT (14:12)
[2023-10-18 15:11] LABS: Glucose Point of Care 70 mg/dl (65-105)
[2023-10-18 15:11] LABS: Glucose Point of Care 72 mg/dl (65-105)
[2023-10-18 15:11] LABS: Glucose Point of Care 74 mg/dl (65-105)
[2023-10-18] MEDS: VANCOMYCIN 1,500 MG/NS 500 ML 1,500 MG/500 ML BAG 250 MG IVPB (15:52)
[2023-10-18 16:11] LABS: Basophils Percent Auto 0.5 % (0.2-1.2); Eosinophils Absolute Auto 0.1 K/mm3 (0-0.3); Eosinophils Percent Auto 1.3 % (0-4.4); Hematocrit 33.3 % (37.0-47.0); Hemoglobin 10.9 g/dL (12.0-15.0); Immature Granulocyte Absolute 0.03 K/mm3 (0.00-0.031); Immature Granulocyte Percent A 0.4 % (0-0.5); Lymphocytes Absolute Auto 0.93 K/mm3 (0.9-3.2); Lymphocytes Percent Auto 11.7 % (18.3-44.2); Mean Corpuscular HGB Conc 32.7 g/dl (32-36); Mean Corpuscular Hemoglobin 29.5 pg (26-34); Mean Corpuscular Volume 90.2 fl (80-100); Mean Platelet Volume 8.8 fl (7.4-10.4); Monocytes Absolute Auto 0.5 K/mm3 (0.1-0.6); Monocytes Percent Auto 5.9 % (2.6-8.5); Neutrophils Absolute Auto 6.4 K/mm3 (1.3-6.7); Neutrophils Percent Auto 80.2 % (45.5-73.1); Platelet Count Result 263 k/mm3 (150-375); Red Blood Count 3.69 M/mm3 (4.2-5.4); Red Cell Distribution Width 13.9 % (11.5-14.5); White Blood Count 7.9 K/mm3 (4.5-10.0)
[2023-10-18 16:21] LABS: Alanine Aminotransferase 74 U/L (6-35); Albumin Level 3.1 g/dL (3.5-5.1); Alkaline Phosphatase 71 U/L (38-126); Anion Gap 3 mmol/L (4-12); Aspartate Amino Transferase 86 U/L (14-36); Bilirubin,Total 0.5 mg/dL (0.2-1.3); Blood Urea Nitrogen 15 mg/dL (7-17); Calcium 7.7 mg/dL (8.4-10.2); Carbon Dioxide 28 mmol/L (22-30); Chloride 110 mmol/L (98-107); Creatine Kinase 297 U/L (30-135); Estimated CRCL calculation 77 ml/min; Estimated Glomerular Filt Rate > 60; Glucose 109 mg/dL (65-110); Potassium 3.1 mmol/L (3.4-5.0); Sodium 141 mmol/L (137-145)
[2023-10-18 17:11] LABS: Glucose Point of Care 73 mg/dl (65-105)
[2023-10-18 17:14] LABS: Glucose Point of Care 75 mg/dl (65-105)
[2023-10-18 18:24] LABS: Glucose Point of Care 73 mg/dl (65-105)
[2023-10-18] MEDS: PROPOFOL IV EMULSION 100 ML 18.9 MG IV CONT (18:59)
[2023-10-18 19:13] LABS: Glucose Point of Care 79 mg/dl (65-105)
[2023-10-18] MEDS: levETIRAcetam 500MG/NACL 100ML 500 MG/100 ML BAG 400 MG IVPB (21:06)
--- NOTE | 2023-10-18 21:50 | ECHO_ITS ---
Patient Info Name: Fouzia Mccullough Age: 53 years : 1970 Gender: Female Ht: 66 in Wt: 242 lbs BSA: 2.31 m2 HR: 90 bpm BP: 152 / 101 mmHg Heart Rhythm: Sinus Rhythm Technical Quality: Fair Exam Date: 10/18/2023 8:49 AM Exam Location: Echo Lab Patient Status: Inpatient Admit Date: 10/17/2023 Staff Ordering Physician: Kris Nixon DO Ice Plant Operator: Cale Hart RDCS Attending Provider: Kelly Blanc MD Referring Physician: Hussain VELAZQUEZ; Exam Type: CA echo dop color flow w con Study Info Indications - Cardiac arrest Complete two-dimensional, color flow and Doppler transthoracic echocardiogram is performed with contrast to opacify the left ventricle and to improve the deliniation of the left ventricle endocardial borders. Contrast/Agitated Saline Contrast/Ag. Saline: Definity Amount: 4.00 ml Existing IV Access: Yes Summary 1. Findings are suggestive mostly of hypertrophic cardiomyopathy, apical variety. 2. Left atrial enlargement. 3. Mitral annular calcium. 4. Severe concentric LVH with essentially olliteration of the cavity in end systole. 5. No evidence of dynamic LVOT obstruction. Left Ventricle Left ventricular chamber dimension is normal. Left ventricular systolic function is hyperdynamic, estimated at >70%. There is severe concentric increased left ventricular wall thickness. The left ventricular diastolic function is grade II diastolic dysfunction. Right Ventricle Right ventricular chamber dimension is normal. Left Atria Left atrial chamber dimension is moderately enlarged. Right Atria Right atrial chamber dimension is normal. Aortic Valve The aortic valve is normal. Pulmonic Valve The pulmonic valve is not well visualized. Mitral Valve The mitral valve has normal leaflets. The mitral valve annulus is mildly calcified. Tricuspid Valve The tricuspid valve leaflets are normal. There is trace tricuspid valve regurgitation. Pericardium/Pleural The pericardium appears normal. Aorta The aortic root size at the sinus of Valsalva is normal. Left Ventricular Outflow Tract Name Value Normal LVOT 2D LVOT Diameter 1.90 cm LVOT Doppler LVOT Peak Gradient 4 mmHg LVOT Mean Gradient 2 mmHg LVOT VTI 18.85 cm LVOT VTI/AV VTI Ratio 0.75 LVOT Stroke Volume 53.54 ml LVOT CO 4.36 l/min LVOT CI 1.89 L/min/m2 Pulmonic Valve Name Value Normal PV Doppler PV Peak Gradient 2 mmHg Mitral Valve Name Value Normal MV Doppler
[2023-10-18 22:10] LABS: Glucose Point of Care 83 mg/dl (65-105)
[2023-10-18 22:10] LABS: Glucose Point of Care 76 mg/dl (65-105)
[2023-10-18 22:10] LABS: Glucose Point of Care 64 mg/dl (65-105)
[2023-10-18 22:10] LABS: Glucose Point of Care 73 mg/dl (65-105)
[2023-10-18] MEDS: cefTRIAXone 2 GM/NS 100 ML 2 GM/100 ML BAG IVPB (23:04)
[2023-10-18] MEDS: AZITHROMYCIN 500 MG/NS 250 ML 500 MG/250 ML BAG 250 MG IVPB (23:04)
[2023-10-18 23:30] LABS: Glucose Point of Care 78 mg/dl (65-105)
[2023-10-18] MEDS: LACTATED RINGERS 500 ML 999 ML IV CONT (23:50)
[2023-10-18] MEDS: PROPOFOL IV EMULSION 100 ML 28.35 MG IV CONT (23:57)
[2023-10-19] VITALS (70 sets, daily range): BP systolic 105–189; BP diastolic 59–103; PULSE 66–117; RESP 12–32; TEMP 34.8–38.4; O2SAT 95–100
[2023-10-19] MEDS: CISATRACURIUM BESYLATE 20 MG/10 ML VIAL 15.8 MG IV PUSH (00:30)
[2023-10-19] MEDS: CISATRACURIUM BESYLATE 200 MG in DEXTROSE 5% 80 ML 9.45 ML IV CONT (00:41)
[2023-10-19 01:10] LABS: Lactic Acid Reflex 1.1 mmol/L (0.7-2.0)
[2023-10-19 01:15] LABS: INR 1.2
[2023-10-19 01:43] LABS: Creatine Kinase 293 U/L (30-135)
[2023-10-19] MEDS: PROPOFOL IV EMULSION 100 ML 28.35 MG IV CONT ×2 (03:13→06:29)
[2023-10-19 03:21] LABS: Glucose Point of Care 79 mg/dl (65-105)
[2023-10-19 03:21] LABS: Glucose Point of Care 93 mg/dl (65-105)
[2023-10-19 03:21] LABS: Glucose Point of Care 84 mg/dl (65-105)
[2023-10-19 03:21] LABS: Glucose Point of Care 70 mg/dl (65-105)
[2023-10-19 04:34] LABS: Glucose Point of Care 100 mg/dl (65-105)
[2023-10-19] MEDS: DEXTROSE 5%/0.45% SOD CHL 1,000 ML 100 ML IV CONT (05:04)
[2023-10-19 05:06] LABS: Alveolar/Arterial O2 Gradient 163.5 mmHg; Base Excess ABG -0.6 mEq/l (+/-2.0); Carboxyhemoglobin 0.3 % THb (0-2.0); Fractional Inspired Oxygen 40 %; HCO3 ABG 22.9 mEq/l (22.0-26.0); Methemoglobin ABG 0.3 %THb (0-1.5); Oxygen Content ABG 15.3 %vol (16.0-22.0); Oxygen Saturation ABG 96.7 % (95.0-100.0); Oxyhemoglobin 96.3 % THb (90.0-100.0); PCO2 ABG 33.7 mmHg (35.0-45.0); PO2 ABG 82.9 mmHg (80.0-100.0); PO2 FiO2 Ratio Arterial Blood 2.07 %; Reduced Hemoglobin 3.1 %THb (0-5.0); Total Hemoglobin 11.2 g/dL (12.0-18.0)
[2023-10-19 05:08] LABS: Device VENTILATOR; Modified Allen's Test Pass; Site Drawn LEFT RADIAL
[2023-10-19 05:09] LABS: Arterial Blood Gas PEEP 5 cmH2O; Arterial Blood Gas Tidal Volume 420 ml; Arterial Blood Gas Vent Mode CMV; Arterial Blood Gas Ventilator rate 20 /MIN
[2023-10-19 05:25] LABS: Basophils Percent Auto 0.6 % (0.2-1.2); Eosinophils Absolute Auto 0.3 K/mm3 (0-0.3); Eosinophils Percent Auto 4.8 % (0-4.4); Hematocrit 32.1 % (37.0-47.0); Hemoglobin 10.4 g/dL (12.0-15.0); Immature Granulocyte Absolute 0.02 K/mm3 (0.00-0.031); Immature Granulocyte Percent A 0.3 % (0-0.5); Lymphocytes Absolute Auto 1.17 K/mm3 (0.9-3.2); Lymphocytes Percent Auto 16.4 % (18.3-44.2); Mean Corpuscular HGB Conc 32.4 g/dl (32-36); Mean Corpuscular Hemoglobin 29.2 pg (26-34); Mean Corpuscular Volume 90.2 fl (80-100); Mean Platelet Volume 9.1 fl (7.4-10.4); Monocytes Absolute Auto 0.6 K/mm3 (0.1-0.6); Neutrophils Percent Auto 69.9 % (45.5-73.1); Platelet Count Result 242 k/mm3 (150-375); Red Blood Count 3.56 M/mm3 (4.2-5.4); Red Cell Distribution Width 14.1 % (11.5-14.5); White Blood Count 7.1 K/mm3 (4.5-10.0)
[2023-10-19 05:37] LABS: Alanine Aminotransferase 64 U/L (6-35); Albumin Level 2.8 g/dL (3.5-5.1); Alkaline Phosphatase 64 U/L (38-126); Anion Gap 3 mmol/L (4-12); Aspartate Amino Transferase 66 U/L (14-36); Bilirubin,Total 0.4 mg/dL (0.2-1.3); Blood Urea Nitrogen 14 mg/dL (7-17); Calcium 7.7 mg/dL (8.4-10.2); Carbon Dioxide 24 mmol/L (22-30); Chloride 111 mmol/L (98-107); Creatine Kinase 289 U/L (30-135); Estimated CRCL calculation 86 ml/min; Estimated Glomerular Filt Rate > 60; Glucose 109 mg/dL (65-110); Magnesium 1.5 mg/dL (1.6-2.3); Phosphorus 2.9 mg/dL (2.5-4.5); Potassium 3.2 mmol/L (3.4-5.0); Sodium 138 mmol/L (137-145)
[2023-10-19 05:42] LABS: Lactic Acid Reflex 1.2 mmol/L (0.7-2.0)
[2023-10-19] MEDS: CENTRAL LINE FLUSH 10 ML IV PUSH ×3 (06:06→22:00)
[2023-10-19 07:06] LABS: Glucose Point of Care 72 mg/dl (65-105)
[2023-10-19 07:06] LABS: Glucose Point of Care 77 mg/dl (65-105)
[2023-10-19] MEDS: IPRATROPIUM 0.5 MG/ALBUTEROL SULFATE 2.5 MG AMPUL.NEB 3 ML INHALATION ×3 (07:15→20:33)
[2023-10-19] MEDS: KCL 40 MEQ/WATER 100 ML 100 ML 25 ML IVPB (07:47)
[2023-10-19] MEDS: POTASSIUM CHLORIDE 20 MEQ PACKET (FOR LIQUID) 40 MEQ FEED TUBE (07:47)
[2023-10-19] MEDS: MAGNESIUM SULF 2 GM/WATER 50ML 2 GM/50 ML BAG IVPB (07:47)
[2023-10-19] MEDS: FUROSEMIDE INJ 40 MG/4 ML VIAL IV PUSH (07:48)
[2023-10-19] MEDS: PANTOPRAZOLE SODIUM IV 40 MG VIAL IV PUSH ×2 (08:03→20:11)
[2023-10-19] MEDS: levETIRAcetam 500MG/NACL 100ML 500 MG/100 ML BAG 400 MG IVPB ×2 (08:03→20:17)
[2023-10-19] MEDS: ENOXAPARIN 40 MG/0.4 ML SYRINGE SUB-Q (08:03)
[2023-10-19] MEDS: DEXTROSE 50% 25 GM/50 ML SYRINGE IV PUSH ×2 (08:18→12:10)
[2023-10-19] MEDS: MINERAL OIL/WHITE PETROLATUM OINTMENT 1 APPLIC EACH EYE ×3 (08:48→20:11)
--- NOTE | 2023-10-19 09:05 | WPDINTPN ---
Progress Note: A&P Assessment and Plan (1) Cardiac arrest: Code(s): I46.9 - Cardiac arrest, cause unspecified Status: Acute Assessment and Plan: Patient presented with the VFib arrest, was defibrillated in the field, given amiodarone infusion, 2 rounds of CPR before return of spontaneous circulation. CPR was started after EMS arrived at home which was few minutes after they were called. -patient currently on target temperature management, as reached 36? centigrade at 3:45 a.m. on 10/18/2023 -likely cause could be related to ischemic heart disease, hypoxia related to pneumonia, CHF, electrolyte abnormalities -continue Keppra for seizure prophylaxis -appreciate cardiology following the patient. Started patient on low-dose beta-kenya for hypertrophic cardiomyopathy -will discuss further with Cardiology regarding treatment options -diurese patient today continue 10/18/2023: Echocardiogram Summary 1. Findings are suggestive mostly of hypertrophic cardiomyopathy, apical variety. EF> 70%, grade 2 diastolic dysfunction 2. Left atrial enlargement. 3. Mitral annular calcium. 4. Severe concentric LVH with essentially olliteration of the cavity in end systole. 5. No evidence of dynamic LVOT obstruction 10/16: CT scan of the brain with no acute intracranial finding. 10/16: CT of the cervical spine showed no acute osseous abnormality of the cervical spine. (2) Acute respiratory failure: Code(s): J96.00 - Acute respiratory failure, unspecified whether with hypoxia or hypercapnia Status: Acute Assessment and Plan: Acute respiratory failure in light of cardiac arrest -pneumonia on CTA, no pulmonary embolism -continue CMV mode of ventilation -chest x-ray and ABGs reviewed, ventilator adjusted -repeat ABGs -continue bronchodilators -continue antibiotics -have asked bedside elevated status weaning the sedation to evaluate neurological status, if patient gets agitated or uncomfortable will start Precedex infusion CTA chest abdomen and pelvis: No pulmonary embolism, bilateral atelectatic changes in the upper lobes, bibasilar subsegmental pneumonia more on the right side, cardiomegaly with LVH, no acute abdominal process with no evidence of appendicitis, diverticulitis or intestinal obstruction. (3) Severe sepsis: Code(s): A41.9 - Sepsis, unspecified organism; R65.20 - Severe sepsis without septic shock Status: Acute Assessment and Plan: Patient with cardiac arrest, lactic acidosis, infiltrates, pneumonia on CTA and chest x-ray -started on azithromycin, ceftriaxone and vancomycin (10/16) -10/16: Blood cultures -preliminary results are negative x2 -10/17: Urine culture negative so far -10/17: Ordered and pending -lactic acid has resolved -patient has received adequate amount of IV fluids, -will discontinue IV fluids (4) RANI (acute kidney injury): Code(s): N17.9 - Acute kidney failure, unspecified Status: Acute Assessment and Plan: Acute kidney injury, creatinine 1.50 on admission -received adequate IV fluids -urine output has been adequate -repeat creatinine this morning was 0.8 this morning -continue maintenance IV fluids -monitor renal function, electrolytes and urine output -will diurese patient today (5) Electrolyte imbalance: Code(s): E87.8 - Other disorders of electrolyte and fluid balance, not elsewhere classified Status: Acute Assessment and Plan: Replace potassium and magnesium (6) Essential hypertension: Code(s): I10 - Essential (primary) hypertension Status: Acute Assessment and Plan: History of essential hypertension, currently on metoprolol per Cardiology (7) Pneumonia: Code(s): J18.9 - Pneumonia, unspecified organism Status: Acute Assessment and Plan: Continue treatment and antibiotics as above (8) Elevated troponin: Code(s): R79.89 - Other specified abnormal findings of bl
[2023-10-19] MEDS: hydrALAZINE HCL 20 MG/ML VIAL 10 MG IV PUSH (09:16)
[2023-10-19 09:26] LABS: Lactic Acid Reflex 1.8 mmol/L (0.7-2.0)
[2023-10-19 09:27] LABS: Creatine Kinase 305 U/L (30-135)
[2023-10-19 09:57] LABS: Vancomycin Trough 10.6 ug/mL (10.0-20.0)
--- NOTE | 2023-10-19 09:59 | PM.PNCARD ---
Progress Note: A&P Assessment and Plan (1) Cardiac arrest: Code(s): I46.9 - Cardiac arrest, cause unspecified Status: Acute Plan 53-year-old lady who likely has hypertrophic cardiomyopathy, apical variant which does not cause LVOT obstruction but does put her at risk for malignant arrhythmias. She has been resuscitated from ventricular fibrillation and hemodynamically is better. I am going to advance her metoprolol dosage today as she is tachycardic and hypertensive. Her dramatically sick hyperdynamic left ventricle will tolerate this well. Assuming she makes a good neurological recovery she will eventually need coronary angiography to exclude ischemic heart disease which I doubt and after this she will need EP consultation for defibrillator implantation assuming we arrive at the diagnosis of hypertrophic cardiomyopathy Cale Mcintosh MD [facility] Subjective Date/time seen: Date of service: 10/19/23 09:59 Interval history: Follow-up visit in this 53-year-old lady with: Out of hospital VFib arrest. 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 She does not have LVOT gradient by echo. Patient is neurologically improved off of sedation, not following commands yet but moving all 4 extremities. Exam Const: Other: Well-developed well-nourished female still intubated on ventilator support HENMT: Mouth: Yes moist mucous membranes Eyes: Sclera: sclerae normal Neck: Neck: supple Resp: Other: Few rhonchi otherwise essentially clear breath sounds Cardio: Rate: tachycardic GI: GI Palp: Yes Soft to palpation Auscultation: normal bowel sounds Urinary Catheter: Urinary Catheter: patent and draining Skin: General skin exam: normal color Neuro: Other: Spontaneously moving limbs, not following commands Extrem: General: normal to inspection Objective Data Vital Signs Vital Signs: Vital Signs - 24 hr 10/18/23 10:10/18/23 10:10/18/23 10:00 Temperature 34.5 C L Pulse Rate 73 73 73 Respiratory Rate 20 20 20 Blood Pressure 113/84 Pulse Oximetry 100 Oxygen Delivery Fraction of Inspired Oxygen 10/18/23 10:10/18/23 11:00 10/18/23 11:00 Temperature 34.5 C L 34.4 C L Pulse Rate 73 77 77 Respiratory Rate 20 20 20 Blood Pressure 113/84 123/90 Pulse Oximetry 100 99 Oxygen Delivery Fraction of Inspired Oxygen 10/18/23 11:00 10/18/23 11:00 10/18/23 12:00 Temperature 35.8 C L Pulse Rate 77 77 87 Respiratory Rate 20 20 20 Blood Pressure 128/86 Pulse Oximetry 98 Oxygen Delivery Fraction of Inspired Oxygen 10/18/23 12:00 10/18/23 12:00 10/18/23 12:00 Temperature 35.8 C L Pulse Rate 87 Respiratory Rate 20 Blood Pressure 128/86 Pulse Oximetry 98 98 Oxygen Delivery Mechanical Ventilation Fraction of Inspired Oxygen 40 40 10/18/23 12:14 10/18/23 12:15 10/18/23 10:54 Temperature Pulse Rate 87 87 77 Respiratory Rate 20 20 Blood Pressure Pulse Oximetry 99 Oxygen Delivery Mechanical Ventilation Fraction of Inspired Oxygen 40 10/18/23 10:00 10/18/23 12:00 10/18/23 13:00 Temperature Pulse Rate 73 87 90 Respiratory Rate 20 Blood Pressure Pulse Oximetry Oxygen Delivery Fraction of Inspired Oxygen 10/18/23 13:00 10/18/23 13:16 10/18/23 13:16 Temperature 36.8 C Pulse Rate 91 92 92 Respiratory Rate 21 H 20 20 Blood Pressure 139/89 Pulse Oximetry 97 Oxygen Delivery Fraction of Inspired Oxygen 10/18/23 13:44 10/18/23 14:00 10/18/23 14:00 Temperature 35.8 C L Pulse Rate 93 91 91 Respiratory Rate 21 H 20 Blood Pressure 145/92 H Pulse Oximetry 99 Oxygen Delivery Fraction of Inspired Oxygen 10/18/23 14:00 10/18/23 14:12 10/18/23 14:12 Temperature 35.8 C L Pulse Rate 93 89 89 Respiratory Rate 20 20 20 Blood Pressure 145/92 H Pulse Oximetry 98 Oxygen Delivery
[2023-10-19 10:02] LABS: Glucose Point of Care 61 mg/dl (65-105)
[2023-10-19 10:02] LABS: Glucose Point of Care 81 mg/dl (65-105)
[2023-10-19 10:02] LABS: Glucose Point of Care 70 mg/dl (65-105)
[2023-10-19 10:02] LABS: Glucose Point of Care 76 mg/dl (65-105)
[2023-10-19] MEDS: METOPROLOL TARTRATE 50 MG TAB PO ×2 (10:22→20:11)
[2023-10-19] MEDS: VANCOMYCIN 1,500 MG/NS 500 ML 1,500 MG/500 ML BAG 250 MG IVPB ×2 (10:23→22:06)
--- NOTE | 2023-10-19 12:01 | PM.IMPN ---
Progress Note: A&P Assessment and Plan (1) Cardiac arrest: Code(s): I46.9 - Cardiac arrest, cause unspecified Status: Acute Assessment and Plan: Patient presented with the VFib arrest, was defibrillated in the field, given amiodarone infusion, 2 rounds of CPR before return of spontaneous circulation. CPR was started after EMS arrived at home which was few minutes after they were called. CT scan of the brain with no acute intracranial finding. CT of the cervical spine showed no acute osseous abnormality of the cervical spine. Etiology:consider ischemic heart disease, hypoxia related to pneumonia, CHF, electrolyte abnormalities Patient completed target temperature management and now re-warmed. She now is having fevers -cardiology following -started patient on Keppra for seizure prophylaxis (2) Acute respiratory failure: Code(s): J96.00 - Acute respiratory failure, unspecified whether with hypoxia or hypercapnia Status: Acute Assessment and Plan: Acute respiratory failure in light of cardiac arrest CTA chest, abdomen and pelvis: No pulmonary embolism, bilateral atelectatic changes in the upper lobes, bibasilar subsegmental pneumonia more on the right side, cardiomegaly with LVH, no acute abdominal process with no evidence of appendicitis, diverticulitis or intestinal obstruction. Resp failure related to cardiac arrest, PNA. Continue antibiotics and bronchodilators Stable on MV. Sedation stopped (3) Severe sepsis: Code(s): A41.9 - Sepsis, unspecified organism; R65.20 - Severe sepsis without septic shock Status: Acute Assessment and Plan: Patient with cardiac arrest, lactic acidosis, infiltrates, pneumonia on CTA Patient has received adequate amount of IV fluids Started on azithromycin, ceftriaxone and vancomycin (10/16) -10/16: BCx NGTD -10/17: UCx negative -10/17: Sputum culture pending -10/17: BCx NGTD Now having fevers. Continue to monitor lactic acidosis which is likely related to cardiac arrest, decreased perfusion, hypoxia Glucose better. Stop IV fluids and start TF Consider covering for anaerobic infection/aspiration PNA since patient down for a time before EMS called but will defer to vp clinical research (4) RANI (acute kidney injury): Code(s): N17.9 - Acute kidney failure, unspecified Status: Acute Assessment and Plan: Acute kidney injury, creatinine 1.1 on admission but climbed to 1.5 She has received adequate IV fluids Excellent UOP. Repeat creatinine normal Stop IV fluids and start oral intake Monitor renal function, electrolytes and urine output (5) Essential hypertension: Code(s): I10 - Essential (primary) hypertension Status: Acute Assessment and Plan: History of essential hypertension, currently on metoprolol per Cardiology metoprolol advanced today BP stable. (6) Pneumonia: Code(s): J18.9 - Pneumonia, unspecified organism Status: Acute Assessment and Plan: As above WBC normal now but having fevers. As above. Follow. Continue treatment plan. (7) Elevated troponin: Code(s): R79.89 - Other specified abnormal findings of blood chemistry Status: Acute Assessment and Plan: Elevated troponins, EKG did not show any ST elevation Echo showing EF>70%, LV chamber size is normal, severe concentric increased LV wall thickness that essentially obliterates the cavity in end systole and Grade II diastolic dysfunction Patient was on heparin infusion but now stopped Cardiology following. Echo findings consistent with hypertrophic CMP, apical variety Continue ASA and metoprolol. (8) Elevated transaminase level: Code(s): R74.01 - Elevation of levels of liver transaminase levels Status: Acute Assessment and Plan: AST/ALT elevated on admission related to shock liver, hypoperfusion. Levels better today. Follow Plan DVT prophylaxis: Lovenox Nut
[2023-10-19] MEDS: dexmedeTOMIDine 400 MCG/100 ML 400 MCG/100 ML BAG 5.25 MCG IV CONT (12:06)
[2023-10-19] MEDS: ACETAMINOPHEN ELIXIR 325 MG/10.15 ML UDC 650 MG PO (12:07)
[2023-10-19 12:39] LABS: Glucose Point of Care 65 mg/dl (65-105)
[2023-10-19 12:39] LABS: Glucose Point of Care 73 mg/dl (65-105)
[2023-10-19 12:56] LABS: Anion Gap 5 mmol/L (4-12); Blood Urea Nitrogen 11 mg/dL (7-17); Calcium 7.6 mg/dL (8.4-10.2); Carbon Dioxide 23 mmol/L (22-30); Chloride 111 mmol/L (98-107); Estimated CRCL calculation 79 ml/min; Estimated Glomerular Filt Rate > 60; Glucose 178 mg/dL (65-110); Magnesium 1.6 mg/dL (1.6-2.3); Potassium 3.7 mmol/L (3.4-5.0); Sodium 139 mmol/L (137-145)
[2023-10-19 13:10] LABS: Glucose Point of Care 106 mg/dl (65-105)
[2023-10-19 14:18] LABS: Glucose Point of Care 91 mg/dl (65-105)
[2023-10-19] MEDS: MIDAZOLAM HCL (*CRX) 2 MG/2 ML VIAL IV PUSH (16:21)
[2023-10-19 16:46] LABS: Basophils Percent Auto 0.5 % (0.2-1.2); Eosinophils Absolute Auto 0.2 K/mm3 (0-0.3); Hematocrit 31.5 % (37.0-47.0); Hemoglobin 10.3 g/dL (12.0-15.0); Immature Granulocyte Absolute 0.02 K/mm3 (0.00-0.031); Immature Granulocyte Percent A 0.3 % (0-0.5); Lymphocytes Absolute Auto 0.66 K/mm3 (0.9-3.2); Lymphocytes Percent Auto 8.4 % (18.3-44.2); Mean Corpuscular HGB Conc 32.7 g/dl (32-36); Mean Corpuscular Hemoglobin 29.3 pg (26-34); Mean Corpuscular Volume 89.7 fl (80-100); Mean Platelet Volume 9.3 fl (7.4-10.4); Monocytes Absolute Auto 0.6 K/mm3 (0.1-0.6); Monocytes Percent Auto 7.6 % (2.6-8.5); Neutrophils Absolute Auto 6.4 K/mm3 (1.3-6.7); Neutrophils Percent Auto 81.2 % (45.5-73.1); Platelet Count Result 241 k/mm3 (150-375); Red Blood Count 3.51 M/mm3 (4.2-5.4); Red Cell Distribution Width 14.4 % (11.5-14.5); White Blood Count 7.9 K/mm3 (4.5-10.0)
[2023-10-19 16:55] LABS: Creatine Kinase 273 U/L (30-135); Lactic Acid Reflex 1.2 mmol/L (0.7-2.0)
[2023-10-19 17:04] LABS: Glucose Point of Care 98 mg/dl (65-105)
[2023-10-19 20:57] LABS: Glucose Point of Care 104 mg/dl (65-105)
[2023-10-19] MEDS: cefTRIAXone 2 GM/NS 100 ML 2 GM/100 ML BAG IVPB (22:05)
[2023-10-19] MEDS: AZITHROMYCIN 500 MG/NS 250 ML 500 MG/250 ML BAG 250 MG IVPB (22:06)
--- NOTE | 2023-10-19 22:34 | PC.NURSE ---
Patient pulling at tube, attempted to self extubate. Dr Alvarado made aware and order received for versed drip with order to start at 2mg per hour.
[2023-10-19] MEDS: MIDAZOLAM 100MG/NS 100ML(*CRX) 100 MG/100 ML BAG (22:35)
[2023-10-19] MEDS: MIDAZOLAM 100MG/NS 100ML(*CRX) 100 MG/100 ML BAG IV CONT (22:35)
[2023-10-20] VITALS (70 sets, daily range): BP systolic 110–160; BP diastolic 73–104; PULSE 60–72; RESP 14–28; TEMP 35.1–38.4; O2SAT 98–100; BMI 40.4
[2023-10-20] MEDS: dexmedeTOMIDine 400 MCG/100 ML 400 MCG/100 ML BAG 10.5 MCG IV CONT ×2 (00:37→10:07)
[2023-10-20 00:49] LABS: Glucose Point of Care 101 mg/dl (65-105)
[2023-10-20] MEDS: IPRATROPIUM 0.5 MG/ALBUTEROL SULFATE 2.5 MG AMPUL.NEB 3 ML INHALATION ×4 (02:26→19:51)
[2023-10-20 04:27] LABS: Glucose Point of Care 98 mg/dl (65-105)
[2023-10-20 05:40] LABS: Basophils Percent Auto 0.4 % (0.2-1.2); Eosinophils Absolute Auto 0.3 K/mm3 (0-0.3); Eosinophils Percent Auto 4.6 % (0-4.4); Hematocrit 30.6 % (37.0-47.0); Immature Granulocyte Absolute 0.03 K/mm3 (0.00-0.031); Immature Granulocyte Percent A 0.4 % (0-0.5); Lymphocytes Absolute Auto 1.09 K/mm3 (0.9-3.2); Lymphocytes Percent Auto 15.2 % (18.3-44.2); Mean Corpuscular HGB Conc 32.7 g/dl (32-36); Mean Corpuscular Hemoglobin 29.4 pg (26-34); Mean Platelet Volume 9.3 fl (7.4-10.4); Monocytes Absolute Auto 0.8 K/mm3 (0.1-0.6); Monocytes Percent Auto 10.6 % (2.6-8.5); Neutrophils Absolute Auto 4.9 K/mm3 (1.3-6.7); Neutrophils Percent Auto 68.8 % (45.5-73.1); Platelet Count Result 220 k/mm3 (150-375); Red Cell Distribution Width 14.6 % (11.5-14.5); White Blood Count 7.2 K/mm3 (4.5-10.0)
[2023-10-20 05:46] LABS: Alveolar/Arterial O2 Gradient 129.5 mmHg; Base Excess ABG -0.5 mEq/l (+/-2.0); Carboxyhemoglobin 0.3 % THb (0-2.0); Fractional Inspired Oxygen 40 %; HCO3 ABG 24.8 mEq/l (22.0-26.0); Methemoglobin ABG 0.3 %THb (0-1.5); Oxygen Content ABG 20.1 %vol (16.0-22.0); Oxygen Saturation ABG 97.8 % (95.0-100.0); Oxyhemoglobin 97.6 % THb (90.0-100.0); PCO2 ABG 42.8 mmHg (35.0-45.0); PO2 ABG 106.5 mmHg (80.0-100.0); PO2 FiO2 Ratio Arterial Blood 2.66 %; Reduced Hemoglobin 1.8 %THb (0-5.0); Total Hemoglobin 14.6 g/dL (12.0-18.0)
[2023-10-20 05:47] LABS: Device VENTILATOR; Modified Allen's Test Pass; Site Drawn RIGHT RADIAL
[2023-10-20 05:48] LABS: Arterial Blood Gas PEEP 5 cmH2O; Arterial Blood Gas Tidal Volume 420 ml; Arterial Blood Gas Vent Mode CMV; Arterial Blood Gas Ventilator rate 18 /MIN
[2023-10-20 05:49] LABS: Alanine Aminotransferase 64 U/L (6-35); Alkaline Phosphatase 74 U/L (38-126); Anion Gap 6 mmol/L (4-12); Aspartate Amino Transferase 46 U/L (14-36); Bilirubin,Total 0.5 mg/dL (0.2-1.3); Blood Urea Nitrogen 15 mg/dL (7-17); Carbon Dioxide 25 mmol/L (22-30); Chloride 109 mmol/L (98-107); Estimated CRCL calculation 79 ml/min; Estimated Glomerular Filt Rate > 60; Glucose 103 mg/dL (65-110); Magnesium 1.8 mg/dL (1.6-2.3); Phosphorus 4.1 mg/dL (2.5-4.5); Potassium 3.5 mmol/L (3.4-5.0); Sodium 140 mmol/L (137-145); Triglycerides 66 mg/dL (<150)
[2023-10-20] MEDS: CENTRAL LINE FLUSH 10 ML IV PUSH ×3 (06:00→21:13)
--- NOTE | 2023-10-20 06:04 | ECG_ITS ---
Test Date: 2023-10-20 06:04:17 Measurements Intervals [place] Rate: 66 P: 41 [place]: 181 QRS: -3 QRSD: 107 T: 141 QT: 441 QTc: 465 Interpretive Statements SINUS RHYTHM POSSIBLE LEFT ATRIAL ENLARGEMENT LEFT VENTRICULAR HYPERTROPHY AND ST-T CHANGE BORDERLINE T WAVE ABNORMALITY- ANTEROLATERAL LEADS BORDERLINE ECG Compared to ECG 10/18/2023 13:56:53 No significant changes Electronically Signed On 10-20-2023 08:25:49 CDT by Casey Lopez D.O.
[2023-10-20] MEDS: KCL 40 MEQ/WATER 100 ML 100 ML 25 ML IVPB (07:44)
--- NOTE | 2023-10-20 07:50 | WPDINTPN ---
Progress Note: A&P Assessment and Plan (1) Cardiac arrest: Code(s): I46.9 - Cardiac arrest, cause unspecified Status: Acute Assessment and Plan: Patient presented with the VFib arrest, was defibrillated in the field, given amiodarone infusion, 2 rounds of CPR before return of spontaneous circulation. CPR was started after EMS arrived at home which was few minutes after they were called. -patient currently on target temperature management, as reached 36? centigrade at 3:45 a.m. on 10/18/2023 -likely cause could be related to ischemic heart disease, hypoxia related to pneumonia, CHF, electrolyte abnormalities -continue Keppra for seizure prophylaxis -appreciate cardiology following the patient. Continue metoprolol for hypertrophic cardiomyopathy per Cardiology -per discussion with Cardiology she will require ischemic workup with an angiogram and possible EP consultation for AICD placement enoxaparin for her hypertrophic cardiomyopathy -will again diurese patient today, will observe urine output and patient may require another dose of Lasix later today 10/18/2023: Echocardiogram Summary 1. Findings are suggestive mostly of hypertrophic cardiomyopathy, apical variety. EF> 70%, grade 2 diastolic dysfunction 2. Left atrial enlargement. 3. Mitral annular calcium. 4. Severe concentric LVH with essentially olliteration of the cavity in end systole. 5. No evidence of dynamic LVOT obstruction 10/16: CT scan of the brain with no acute intracranial finding. 10/16: CT of the cervical spine showed no acute osseous abnormality of the cervical spine. (2) Acute respiratory failure: Code(s): J96.00 - Acute respiratory failure, unspecified whether with hypoxia or hypercapnia Status: Acute Assessment and Plan: Acute respiratory failure in light of cardiac arrest -pneumonia on CTA, no pulmonary embolism -continue CMV mode of ventilation -chest x-ray and ABGs reviewed, ventilator adjusted -repeat ABGs -continue bronchodilators -continue antibiotics -currently on Precedex infusion, patient is following commands, overnight got agitated, dyssynchronous with the ventilator and was started on low-dose Versed infusion -chest x-ray this morning: Extensive hazy pulmonary disease, similar to prior exam. CTA chest abdomen and pelvis: No pulmonary embolism, bilateral atelectatic changes in the upper lobes, bibasilar subsegmental pneumonia more on the right side, cardiomegaly with LVH, no acute abdominal process with no evidence of appendicitis, diverticulitis or intestinal obstruction. (3) Severe sepsis: Code(s): A41.9 - Sepsis, unspecified organism; R65.20 - Severe sepsis without septic shock Status: Acute Assessment and Plan: Patient with cardiac arrest, lactic acidosis, infiltrates, pneumonia on CTA and chest x-ray -started on azithromycin, ceftriaxone and vancomycin (10/16) -10/16: Blood cultures -preliminary results are negative x2 -10/17: Urine culture negative so far -10/17: Negative so far -lactic acid has resolved -patient has received adequate amount of IV fluids, -no additional IV fluids required at this time (4) RANI (acute kidney injury): Code(s): N17.9 - Acute kidney failure, unspecified Status: Acute Assessment and Plan: Acute kidney injury, creatinine 1.50 on admission -received adequate IV fluids -urine output has been adequate -repeat creatinine is normal this morning -continue maintenance IV fluids -monitor renal function, electrolytes and urine output -will diurese patient today (5) Electrolyte imbalance: Code(s): E87.8 - Other disorders of electrolyte and fluid balance, not elsewhere classified Status: Acute Assessment and Plan: Replace potassium and magnesium (6) Essential hypertension: Code(s): I10 - Essential (primary) hypertension Status: Acute Assessment and Plan: History of essential hypertension, cur
[2023-10-20] MEDS: FUROSEMIDE INJ 40 MG/4 ML VIAL IV PUSH ×2 (07:52→21:58)
[2023-10-20] MEDS: POTASSIUM CHLORIDE 20 MEQ PACKET (FOR LIQUID) 40 MEQ FEED TUBE (07:52)
[2023-10-20] MEDS: MAGNESIUM SULF 2 GM/WATER 50ML 2 GM/50 ML BAG IVPB (07:55)
[2023-10-20 08:18] LABS: Glucose Point of Care 105 mg/dl (65-105)
[2023-10-20] MEDS: ENOXAPARIN 40 MG/0.4 ML SYRINGE SUB-Q (08:58)
[2023-10-20] MEDS: PANTOPRAZOLE SODIUM IV 40 MG VIAL IV PUSH ×2 (08:58→21:12)
[2023-10-20] MEDS: levETIRAcetam 500MG/NACL 100ML 500 MG/100 ML BAG 400 MG IVPB ×2 (08:58→21:11)
[2023-10-20] MEDS: METOPROLOL TARTRATE 50 MG TAB PO ×2 (08:59→21:12)
[2023-10-20] MEDS: MINERAL OIL/WHITE PETROLATUM OINTMENT 1 APPLIC EACH EYE ×2 (08:59→21:12)
--- NOTE | 2023-10-20 10:00 | PM.PNCARD ---
Progress Note: A&P Assessment and Plan (1) Cardiac arrest: Code(s): I46.9 - Cardiac arrest, cause unspecified Status: Acute Assessment and Plan: Possibly related to arrhythmia from possible hypertrophic cardiomyopathy, apical variant. Eventual cardiac catheterization and electrophysiology evaluation plus/minus cardiac MRI (2) Essential hypertension: Code(s): I10 - Essential (primary) hypertension Status: Acute Assessment and Plan: Continue metoprolol (3) Hypokalemia: Code(s): E87.6 - Hypokalemia Status: Acute Assessment and Plan: Potassium 3.5 today. Potassium replaced Subjective Date/time seen: 10/20/23 10:00 Interval history: Follow-up visit in this 53-year-old lady with: Out of hospital VFib arrest. 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 She does not have LVOT gradient by echo. Patient is neurologically improved off of sedation, not following commands yet but moving all 4 extremities. Date of service 10/20/2023: She is awake and alert and oriented and follows commands when sedation is off. Precedex restarted though secondary to agitation. Rhythm stable Review of Systems Review of Systems: ROS unobtainable: Yes unobtainable due to endotracheal tube and unobtainable due to medical condition Exam Const: Other: Well-developed well-nourished female still intubated on ventilator support HENMT: Mouth: Yes moist mucous membranes Eyes: Sclera: sclerae normal Neck: Neck: supple Resp: Other: Few rhonchi otherwise essentially clear breath sounds Cardio: Rate: regular rate Rhythm: regular rhythm Other: Difficult exam because of low breath sounds GI: Auscultation: normal bowel sounds Urinary Catheter: Urinary Catheter: patent and draining Skin: General skin exam: normal color Neuro: Other: Spontaneously moving limbs, not following commands Extrem: General: normal to inspection Objective Data Vital Signs Vital Signs: Vital Signs - 24 hr 10/19/23 10:22 10/19/23 10:23 10/19/23 11:02 Temperature 37.9 C H Pulse Rate 117 H 117 H 87 Respiratory Rate 28 H Blood Pressure 189/86 H 152/99 H Pulse Oximetry 95 Oxygen Delivery Fraction of Inspired Oxygen 10/19/23 12:00 10/19/23 12:00 10/19/23 11:04 Temperature 37.5 C Pulse Rate 94 Respiratory Rate Blood Pressure Pulse Oximetry 97 Oxygen Delivery Mechanical Ventilation Fraction of Inspired Oxygen 40 10/19/23 12:00 10/19/23 12:06 10/19/23 12:07 Temperature 38.4 C H 38.4 C H Pulse Rate 92 93 Respiratory Rate 24 H 24 H Blood Pressure 146/98 H Pulse Oximetry 97 Oxygen Delivery Fraction of Inspired Oxygen 10/19/23 12:00 10/19/23 13:15 10/19/23 13:15 Temperature Pulse Rate 89 89 Respiratory Rate 22 H Blood Pressure Pulse Oximetry 97 Oxygen Delivery Mechanical Ventilation Fraction of Inspired Oxygen 40 40 10/19/23 13:25 10/19/23 14:00 10/19/23 14:00 Temperature 37.9 C H Pulse Rate 90 84 Respiratory Rate 22 H 18 Blood Pressure 111/59 L Pulse Oximetry 98 Oxygen Delivery Fraction of Inspired Oxygen 40 10/19/23 14:00 10/19/23 13:07 10/19/23 14:00 Temperature 37.9 C H Pulse Rate 84 83 Respiratory Rate 18 Blood Pressure Pulse Oximetry Oxygen Delivery Fraction of Inspired Oxygen 10/19/23 16:00 10/19/23 16:00 10/19/23 17:15 Temperature 37.0 C Pulse Rate 72 73 74 Respiratory Rate 18 18 Blood Pressure 119/75 Pulse Oximetry 99 Oxygen Delivery Fraction of Inspired Oxygen 10/19/23 18:00 10/19/23 18:00 10/19/23 18:00 Temperature 36.9 C Pulse Rate 72 72 Respiratory Rate 18 Blood Pressure 112/69 Pulse Oximetry 100 Oxygen Delivery Fraction of Inspired Oxygen 40 10/19/23 18:00 10/19/23 16:00 10/19/23 16:00 Temperature 37.2 C Pulse Rat
[2023-10-20 12:02] LABS: Glucose Point of Care 122 mg/dl (65-105)
[2023-10-20] MEDS: dexmedeTOMIDine 400 MCG/100 ML 400 MCG/100 ML BAG 18.38 MCG IV CONT (15:49)
--- NOTE | 2023-10-20 16:00 | PM.IMPN ---
Progress Note: A&P Assessment and Plan (1) Cardiac arrest: Code(s): I46.9 - Cardiac arrest, cause unspecified Status: Acute Assessment and Plan: Patient presented with the VFib arrest, was defibrillated in the field, given amiodarone infusion, 2 rounds of CPR before return of spontaneous circulation. CPR was started after EMS arrived at home which was few minutes after they were called. CT scan of the brain with no acute intracranial finding. CT of the cervical spine showed no acute osseous abnormality of the cervical spine. Etiology:consider ischemic heart disease, hypoxia related to pneumonia, CHF, electrolyte abnormalities Patient completed target temperature management and completed re-warming She was having fevers and now hypothermia requiring a Jihan Hugger -cardiology following -started patient on Keppra for seizure prophylaxis (2) Acute respiratory failure: Code(s): J96.00 - Acute respiratory failure, unspecified whether with hypoxia or hypercapnia Status: Acute Assessment and Plan: Acute respiratory failure in light of cardiac arrest CTA chest, abdomen and pelvis: No pulmonary embolism, bilateral atelectatic changes in the upper lobes, bibasilar subsegmental pneumonia more on the right side, cardiomegaly with LVH, no acute abdominal process with no evidence of appendicitis, diverticulitis or intestinal obstruction. Resp failure related to cardiac arrest, PNA. Stable on MV. CXR reviewed. Continue antibiotics and bronchodilators. Lasix IV once ordered. (3) Severe sepsis: Code(s): A41.9 - Sepsis, unspecified organism; R65.20 - Severe sepsis without septic shock Status: Acute Assessment and Plan: Patient with cardiac arrest, lactic acidosis, infiltrates, pneumonia on CTA Patient has received adequate amount of IV fluids Started on azithromycin, ceftriaxone and vancomycin (10/16) -10/16: BCx NGTD -10/17: UCx negative -10/17: Sputum culture pending -10/17: BCx NGTD Now having temperature instability Lactic acidosis resolved. It was likely related to cardiac arrest, decreased perfusion, hypoxia Glucose better. Stop IV fluids and start TF Consider covering for anaerobic infection/aspiration PNA if condition worsens (4) RANI (acute kidney injury): Code(s): N17.9 - Acute kidney failure, unspecified Status: Acute Assessment and Plan: Acute kidney injury, creatinine 1.1 on admission but climbed to 1.5 She has received adequate IV fluids Excellent UOP. Repeat creatinine normal Off IV fluids now Monitor renal function, electrolytes and urine output (5) Essential hypertension: Code(s): I10 - Essential (primary) hypertension Status: Acute Assessment and Plan: History of essential hypertension, currently on metoprolol per Cardiology Continue metoprolol Continue to monitor vital signs (6) Pneumonia: Code(s): J18.9 - Pneumonia, unspecified organism Status: Acute Assessment and Plan: As above WBC normal As above. Follow. Continue treatment plan. (7) Elevated troponin: Code(s): R79.89 - Other specified abnormal findings of blood chemistry Status: Acute Assessment and Plan: Elevated troponins to 0.097. EKG did not show any ST elevation Echo showing EF>70%, LV chamber size is normal, severe concentric increased LV wall thickness that essentially obliterates the cavity in end systole and Grade II diastolic dysfunction Patient was on heparin infusion but now stopped Cardiology following. Echo findings consistent with hypertrophic CMP, apical variety Continue ASA and metoprolol. (8) Elevated transaminase level: Code(s): R74.01 - Elevation of levels of liver transaminase levels Status: Acute Assessment and Plan: AST/ALT elevated on admission related to shock liver, hypoperfusion. Levels better today. Follow Plan DVT prophylaxis: Lovenox Nu
[2023-10-20 16:10] LABS: Glucose Point of Care 119 mg/dl (65-105)
[2023-10-20] MEDS: hydrALAZINE HCL 20 MG/ML VIAL 10 MG IV PUSH (16:50)
[2023-10-20 18:49] LABS: Pneumococcal Antigen Urine NOT DETECTED
--- NOTE | 2023-10-20 20:00 | PC.NURSE ---
Increasing Precedex drip to titrate versed off.
[2023-10-20] MEDS: dexmedeTOMIDine 400 MCG/100 ML 400 MCG/100 ML BAG 23.63 MCG IV CONT (21:09)
[2023-10-20] MEDS: cefTRIAXone 2 GM/NS 100 ML 2 GM/100 ML BAG IVPB (21:13)
[2023-10-20] MEDS: AZITHROMYCIN 500 MG/NS 250 ML 500 MG/250 ML BAG 250 MG IVPB (21:13)
--- NOTE | 2023-10-20 23:00 | PC.NURSE ---
Versed drip restarted, patient able to follow commands but currently at a +2 rass despite being on precedex drip.
[2023-10-21] VITALS (40 sets, daily range): BP systolic 134–157; BP diastolic 85–104; PULSE 62–78; RESP 15–23; TEMP 35.7–36.5; O2SAT 97–100
[2023-10-21 00:26] LABS: Glucose Point of Care 87 mg/dl (65-105)
[2023-10-21] MEDS: dexmedeTOMIDine 400 MCG/100 ML 400 MCG/100 ML BAG 26.25 MCG IV CONT (00:55)
[2023-10-21] MEDS: IPRATROPIUM 0.5 MG/ALBUTEROL SULFATE 2.5 MG AMPUL.NEB 3 ML INHALATION ×4 (01:47→19:45)
[2023-10-21] MEDS: MIDAZOLAM 100MG/NS 100ML(*CRX) 100 MG/100 ML BAG IV CONT (02:32)
[2023-10-21 03:29] LABS: Legionella pneumophila Ag Ur NOT DETECTED
[2023-10-21 04:49] LABS: Alveolar/Arterial O2 Gradient 75.9 mmHg; Carboxyhemoglobin 0.3 % THb (0-2.0); Fractional Inspired Oxygen 30 %; HCO3 ABG 27.4 mEq/l (22.0-26.0); Methemoglobin ABG 0.3 %THb (0-1.5); Oxygen Content ABG 16.4 %vol (16.0-22.0); Oxyhemoglobin 96.5 % THb (90.0-100.0); PCO2 ABG 41.6 mmHg (35.0-45.0); PO2 ABG 89.1 mmHg (80.0-100.0); PO2 FiO2 Ratio Arterial Blood 2.97 %; Reduced Hemoglobin 2.9 %THb (0-5.0); pH ABG 7.437 (7.350-7.450)
[2023-10-21 04:50] LABS: Arterial Blood Gas PEEP 5 cmH2O; Arterial Blood Gas Tidal Volume 420 ml; Arterial Blood Gas Vent Mode CMV; Arterial Blood Gas Ventilator rate 18 /MIN; Device VENTILATOR; Modified Allen's Test Pass; Site Drawn RIGHT RADIAL
[2023-10-21] MEDS: dexmedeTOMIDine 400 MCG/100 ML 400 MCG/100 ML BAG 23.63 MCG IV CONT (05:03)
[2023-10-21] MEDS: CENTRAL LINE FLUSH 10 ML IV PUSH ×3 (05:04→20:48)
[2023-10-21 05:07] LABS: Basophils Percent Auto 0.5 % (0.2-1.2); Eosinophils Absolute Auto 0.3 K/mm3 (0-0.3); Eosinophils Percent Auto 4.4 % (0-4.4); Hematocrit 33.9 % (37.0-47.0); Immature Granulocyte Absolute 0.04 K/mm3 (0.00-0.031); Immature Granulocyte Percent A 0.5 % (0-0.5); Lymphocytes Absolute Auto 0.74 K/mm3 (0.9-3.2); Lymphocytes Percent Auto 9.6 % (18.3-44.2); Mean Corpuscular HGB Conc 32.4 g/dl (32-36); Mean Corpuscular Volume 89.4 fl (80-100); Mean Platelet Volume 9.5 fl (7.4-10.4); Monocytes Absolute Auto 0.8 K/mm3 (0.1-0.6); Neutrophils Absolute Auto 5.7 K/mm3 (1.3-6.7); Platelet Count Result 252 k/mm3 (150-375); Red Blood Count 3.79 M/mm3 (4.2-5.4); Red Cell Distribution Width 14.2 % (11.5-14.5); White Blood Count 7.7 K/mm3 (4.5-10.0)
[2023-10-21 05:21] LABS: Magnesium 1.7 mg/dL (1.6-2.3); Phosphorus 3.8 mg/dL (2.5-4.5)
[2023-10-21 05:22] LABS: Alanine Aminotransferase 57 U/L (6-35); Albumin Level 3.3 g/dL (3.5-5.1); Alkaline Phosphatase 85 U/L (38-126); Anion Gap 6 mmol/L (4-12); Aspartate Amino Transferase 32 U/L (14-36); Bilirubin,Total 0.4 mg/dL (0.2-1.3); Blood Urea Nitrogen 15 mg/dL (7-17); Carbon Dioxide 29 mmol/L (22-30); Chloride 104 mmol/L (98-107); Estimated CRCL calculation 97 ml/min; Estimated Glomerular Filt Rate > 60; Glucose 108 mg/dL (65-110); Potassium 3.2 mmol/L (3.4-5.0); Sodium 139 mmol/L (137-145)
[2023-10-21 07:59] LABS: Glucose Point of Care 154 mg/dl (65-105)
[2023-10-21] MEDS: KCL 40 MEQ/WATER 100 ML 100 ML 25 ML IVPB (08:02)
[2023-10-21] MEDS: ENOXAPARIN 40 MG/0.4 ML SYRINGE SUB-Q (08:10)
[2023-10-21] MEDS: PANTOPRAZOLE SODIUM IV 40 MG VIAL IV PUSH ×2 (08:10→20:28)
[2023-10-21] MEDS: POTASSIUM CHLORIDE 20 MEQ PACKET (FOR LIQUID) 40 MEQ FEED TUBE (08:10)
[2023-10-21] MEDS: levETIRAcetam 500MG/NACL 100ML 500 MG/100 ML BAG 400 MG IVPB ×2 (08:10→20:28)
[2023-10-21] MEDS: METOPROLOL TARTRATE 50 MG TAB PO ×2 (08:10→20:28)
[2023-10-21] MEDS: MINERAL OIL/WHITE PETROLATUM OINTMENT 1 APPLIC EACH EYE ×2 (08:10→20:28)
--- NOTE | 2023-10-21 08:19 | WPDINTPN ---
Progress Note: A&P Assessment and Plan (1) Cardiac arrest: Code(s): I46.9 - Cardiac arrest, cause unspecified Status: Acute Assessment and Plan: Patient presented with the VFib arrest, was defibrillated in the field, given amiodarone infusion, 2 rounds of CPR before return of spontaneous circulation. CPR was started after EMS arrived at home which was few minutes after they were called. -patient completed protocol of target temperature management -likely cause could be related to ischemic heart disease, hypoxia related to pneumonia, CHF, electrolyte abnormalities -continue Keppra for seizure prophylaxis -appreciate cardiology following the patient. Continue metoprolol for hypertrophic cardiomyopathy per Cardiology -per discussion with Cardiology she will require ischemic workup with an angiogram and possible EP consultation for AICD placement enoxaparin for her hypertrophic cardiomyopathy -continue diuretics 10/18/2023: Echocardiogram Summary 1. Findings are suggestive mostly of hypertrophic cardiomyopathy, apical variety. EF> 70%, grade 2 diastolic dysfunction 2. Left atrial enlargement. 3. Mitral annular calcium. 4. Severe concentric LVH with essentially olliteration of the cavity in end systole. 5. No evidence of dynamic LVOT obstruction 10/16: CT scan of the brain with no acute intracranial finding. 10/16: CT of the cervical spine showed no acute osseous abnormality of the cervical spine. (2) Acute respiratory failure: Code(s): J96.00 - Acute respiratory failure, unspecified whether with hypoxia or hypercapnia Status: Acute Assessment and Plan: Acute respiratory failure in light of cardiac arrest -pneumonia on CTA, no pulmonary embolism -continue CMV mode of ventilation -chest x-ray and ABGs reviewed, ventilator adjusted -continue Lasix -continue bronchodilators -continue antibiotics as below -currently on Precedex and Versed infusion -sedation holiday initiated and will evaluate for weaning trial -chest x-ray this morning reviewed as above CTA chest abdomen and pelvis: No pulmonary embolism, bilateral atelectatic changes in the upper lobes, bibasilar subsegmental pneumonia more on the right side, cardiomegaly with LVH, no acute abdominal process with no evidence of appendicitis, diverticulitis or intestinal obstruction. (3) Severe sepsis: Code(s): A41.9 - Sepsis, unspecified organism; R65.20 - Severe sepsis without septic shock Status: Acute Assessment and Plan: Patient with cardiac arrest, lactic acidosis, infiltrates, pneumonia on CTA and chest x-ray -started on azithromycin, ceftriaxone. Discontinued vancomycin -10/16: Blood cultures -preliminary results are negative x2 -10/17: Urine culture negative so far -10/17: Negative so far -lactic acid has resolved -patient has received adequate amount of IV fluids, -no additional IV fluids required at this time (4) RANI (acute kidney injury): Code(s): N17.9 - Acute kidney failure, unspecified Status: Acute Assessment and Plan: Acute kidney injury, creatinine 1.50 on admission -received adequate IV fluids -urine output has been adequate and creatinine has normalized -monitor renal function, electrolytes and urine output -will diurese patient today (5) Electrolyte imbalance: Code(s): E87.8 - Other disorders of electrolyte and fluid balance, not elsewhere classified Status: Acute Assessment and Plan: Replace potassium and magnesium (6) Essential hypertension: Code(s): I10 - Essential (primary) hypertension Status: Acute Assessment and Plan: History of essential hypertension, currently on metoprolol per Cardiology (7) Pneumonia: Code(s): J18.9 - Pneumonia, unspecified organism Status: Acute Assessment and Plan: Continue treatment and antibiotics as above (8) Elevated troponin: Code(s): R79.89 - Other specified abnorm
--- NOTE | 2023-10-21 08:49 | PC.NURSE ---
0830am: Increased residuals (375mL), abdomen appears more distended. made aware.
[2023-10-21] MEDS: dexmedeTOMIDine 400 MCG/100 ML 400 MCG/100 ML BAG 15.75 MCG IV CONT (09:29)
[2023-10-21] MEDS: MAGNESIUM SULF 2 GM/WATER 50ML 2 GM/50 ML BAG IVPB (10:07)
--- NOTE | 2023-10-21 11:05 | PCNFU ---
Nutrition Follow-Up Complete: Increased protein energy needs related to mechanical ventilation as evidenced by need for full tube feeding Goal: Meet estimated protein energy needs Patient is progressing towards goal. We will continue current goal. Pt current nutrition is Vital AF 1.2 at 50 ml/hr. Nutrition recommendation: 50 ml/hr. Last recorded weight is 104.9 kg, down from 113.5 kg on admit. Bowel Motility: No BM reported. Labs Reviewed:K 3.2,Alb 3.3 Meds Noted:Rocephin, Precedex, Keppra, Protonix, Lasix. Skin: WNL Additional Notes: Patient remains on mechanical vent. Nursing reports elevated residual of 375 ml today. Training Program Developer reports plans to start Reglan today. Tube feedings of Vital AF 1.2 at 50 ml/hr providing 1375 kcal /83 gm protein/892 ml water. Meeting 87% kcal needs(14 kcal/kg IBW) and 70% protein needs at (2.0 gm/kg IBW) this time. Agree with diet orders at this time. Monitoring tube feeding tolerance, labs, weights, plan of care Follow daily in ICU rounds, reassess every Friday and Friday
--- NOTE | 2023-10-21 11:27 | PM.PNCARD ---
Progress Note: A&P Assessment and Plan (1) Cardiac arrest: Code(s): I46.9 - Cardiac arrest, cause unspecified Status: Acute Assessment and Plan: Possibly related to arrhythmia from possible hypertrophic cardiomyopathy, apical variant. Eventual cardiac catheterization and electrophysiology evaluation plus/minus cardiac MRI. Recommend transfer to facility with EP services - in light of her VF arrest secondary prevention ICD is indicated. Discussed with checkroom attendant. (2) Essential hypertension: Code(s): I10 - Essential (primary) hypertension Status: Acute Assessment and Plan: Continue metoprolol (3) Hypokalemia: Code(s): E87.6 - Hypokalemia Status: Acute Assessment and Plan: Potassium 3.2 today. Potassium replaced Subjective Date/time seen: 10/21/23 11:27 Interval history: Follow-up visit in this 53-year-old lady with: Out of hospital VFib arrest. 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 She does not have LVOT gradient by echo. Patient is neurologically improved off of sedation, not following commands yet but moving all 4 extremities. Date of service 10/20/2023: She is awake and alert and oriented and follows commands when sedation is off. Precedex restarted though secondary to agitation. Rhythm stable Date of service 10/21/2023: Remains intubated and on precedex. Review of Systems Review of Systems: ROS unobtainable: Yes unobtainable due to endotracheal tube and unobtainable due to medical condition Exam Const: Other: Well-developed well-nourished female still intubated on ventilator support HENMT: Mouth: Yes moist mucous membranes Eyes: Sclera: sclerae normal Neck: Neck: supple Resp: Other: Few rhonchi otherwise essentially clear breath sounds Cardio: Rate: regular rate and tachycardic Rhythm: regular rhythm Other: Difficult exam because of low breath sounds GI: Auscultation: normal bowel sounds Urinary Catheter: Urinary Catheter: patent and draining Skin: General skin exam: normal color Neuro: Other: Spontaneously moving limbs, not following commands Extrem: General: normal to inspection Other: Co will with hypothermia, adequate perfusion Objective Data Vital Signs Vital Signs: Vital Signs - 24 hr 10/20/23 12:00 10/20/23 14:00 10/20/23 14:11 Temperature 36.6 C Pulse Rate 68 65 64 Respiratory Rate 15 16 18 Blood Pressure 139/91 H 148/97 H Pulse Oximetry 100 100 Oxygen Delivery Fraction of Inspired Oxygen 10/20/23 14:13 10/20/23 14:19 10/20/23 12:00 Temperature Pulse Rate 65 66 68 Respiratory Rate 18 Blood Pressure Pulse Oximetry 100 Oxygen Delivery Mechanical Ventilation Fraction of Inspired Oxygen 40 10/20/23 12:00 10/20/23 12:00 10/20/23 14:00 Temperature Pulse Rate 66 65 Respiratory Rate 18 Blood Pressure Pulse Oximetry 100 Oxygen Delivery Mechanical Ventilation Fraction of Inspired Oxygen 40 40 10/20/23 14:00 10/20/23 15:46 10/20/23 15:49 Temperature Pulse Rate 65 65 Respiratory Rate 18 18 Blood Pressure Pulse Oximetry Oxygen Delivery Fraction of Inspired Oxygen 40 10/20/23 15:49 10/20/23 16:00 10/20/23 16:00 Temperature Pulse Rate 65 64 65 Respiratory Rate 18 18 Blood Pressure Pulse Oximetry 100 Oxygen Delivery Mechanical Ventilation Fraction of Inspired Oxygen 40 10/20/23 16:00 10/20/23 16:00 10/20/23 17:43 Temperature Pulse Rate 65 65 Respiratory Rate 18 Blood Pressure 160/104 H Pulse Oximetry 100 99 Oxygen Delivery Mechanical Ventilation Fraction of Inspired Oxygen 40 40 10/20/23 17:43 10/20/23 18:00 10/20/23 18:00 Temperature 36.5 C Pulse Rate 65 65 Respiratory Rate 17 Blood Pressure 121/79 Pulse Oximetry 100 100 Oxygen Delivery [facility]
[2023-10-21] MEDS: FUROSEMIDE INJ 40 MG/4 ML VIAL IV PUSH (11:28)
[2023-10-21 11:31] LABS: Glucose Point of Care 114 mg/dl (65-105)
--- NOTE | 2023-10-21 11:58 | PM.IMPN ---
Progress Note: A&P Assessment and Plan (1) Cardiac arrest: Code(s): I46.9 - Cardiac arrest, cause unspecified Status: Acute Assessment and Plan: Patient presented with the VFib arrest, was defibrillated in the field, given amiodarone infusion, 2 rounds of CPR before return of spontaneous circulation. CPR was started after EMS arrived at home which was few minutes after they were called. CT scan of the brain with no acute intracranial finding. CT of the cervical spine showed no acute osseous abnormality of the cervical spine. Started patient on Keppra for seizure prophylaxis Etiology:consider ischemic heart disease, hypoxia related to pneumonia, CHF, electrolyte abnormalities Patient completed target temperature management and completed re-warming She was having fevers and then hypothermia requiring a Jihan Hugger; now euthermic Cardiology following. Wean MV as tolerated. (2) Acute respiratory failure: Code(s): J96.00 - Acute respiratory failure, unspecified whether with hypoxia or hypercapnia Status: Acute Assessment and Plan: Acute respiratory failure in light of cardiac arrest CTA chest, abdomen and pelvis: No pulmonary embolism, bilateral atelectatic changes in the upper lobes, bibasilar subsegmental pneumonia more on the right side, cardiomegaly with LVH, no acute abdominal process with no evidence of appendicitis, diverticulitis or intestinal obstruction. Resp failure related to cardiac arrest, PNA. Stable on MV. CXR reviewed. Continue antibiotics and bronchodilators. Lasix IV as needed. Wean vent as tolerated. (3) Severe sepsis: Code(s): A41.9 - Sepsis, unspecified organism; R65.20 - Severe sepsis without septic shock Status: Acute Assessment and Plan: Patient with cardiac arrest, lactic acidosis, infiltrates, pneumonia on CTA Patient has received adequate amount of IV fluids Started on azithromycin, ceftriaxone and vancomycin (10/16) -10/16: BCx NGTD -10/17: UCx negative -10/17: Sputum culture negative -10/17: BCx NGTD Was having temperature instability but now euthermic Lactic acidosis resolved. It was likely related to cardiac arrest, decreased perfusion, hypoxia Glucose better. Continue abx (4) RANI (acute kidney injury): Code(s): N17.9 - Acute kidney failure, unspecified Status: Acute Assessment and Plan: Acute kidney injury, creatinine 1.1 on admission but climbed to 1.5 She has received adequate IV fluids Excellent UOP. Repeat creatinine normal Off IV fluids now Monitor renal function, electrolytes and urine output (5) Essential hypertension: Code(s): I10 - Essential (primary) hypertension Status: Acute Assessment and Plan: History of essential hypertension, currently on metoprolol per Cardiology Continue metoprolol Continue to monitor vital signs (6) Pneumonia: Code(s): J18.9 - Pneumonia, unspecified organism Status: Acute Assessment and Plan: As above WBC normal As above. Follow. Continue treatment plan. (7) Elevated troponin: Code(s): R79.89 - Other specified abnormal findings of blood chemistry Status: Acute Assessment and Plan: Elevated troponins to 0.097. EKG did not show any ST elevation Echo showing EF>70%, LV chamber size is normal, severe concentric increased LV wall thickness that essentially obliterates the cavity in end systole and Grade II diastolic dysfunction Patient was on heparin infusion but now stopped Cardiology following. Echo findings consistent with hypertrophic CMP, apical variety Continue ASA and metoprolol. (8) Elevated transaminase level: Code(s): R74.01 - Elevation of levels of liver transaminase levels Status: Acute Assessment and Plan: AST/ALT elevated on admission related to shock liver, hypoperfusion. Levels better today. Follow Plan DVT prophylaxis: Lovenox Nutrition:CHRISTINE Leger
[2023-10-21] MEDS: METOCLOPRAMIDE HCL 5 MG TABLET FEED TUBE ×3 (13:32→23:12)
[2023-10-21] MEDS: dexmedeTOMIDine 400 MCG/100 ML 400 MCG/100 ML BAG 21 MCG IV CONT ×3 (15:15→20:47)
[2023-10-21 16:38] LABS: Glucose Point of Care 88 mg/dl (65-105)
[2023-10-21] MEDS: PROPOFOL IV EMULSION 100 ML 3.15 MG IV CONT (18:26)
[2023-10-21 19:18] LABS: Mycoplasma IgM Antibody Titer 47 U/mL
[2023-10-21] MEDS: AZITHROMYCIN 500 MG/NS 250 ML 500 MG/250 ML BAG 250 MG IVPB (21:05)
[2023-10-21] MEDS: cefTRIAXone 2 GM/NS 100 ML 2 GM/100 ML BAG IVPB (21:06)
[2023-10-21 23:11] LABS: Glucose Point of Care 129 mg/dl (65-105)
[2023-10-22] VITALS (42 sets, daily range): BP systolic 107–169; BP diastolic 57–108; PULSE 61–149; RESP 16–37; TEMP 35.3–38.8; O2SAT 94–99
[2023-10-22] MEDS: hydrALAZINE HCL 20 MG/ML VIAL 10 MG IV PUSH ×3 (01:13→20:40)
[2023-10-22] MEDS: dexmedeTOMIDine 400 MCG/100 ML 400 MCG/100 ML BAG 18.38 MCG IV CONT ×2 (01:37→06:21)
[2023-10-22] MEDS: METOCLOPRAMIDE HCL 5 MG TABLET FEED TUBE (04:31)
[2023-10-22] MEDS: CENTRAL LINE FLUSH 10 ML IV PUSH ×3 (04:31→20:23)
[2023-10-22 04:46] LABS: Basophils Percent Auto 0.7 % (0.2-1.2); Eosinophils Absolute Auto 0.3 K/mm3 (0-0.3); Eosinophils Percent Auto 5.9 % (0-4.4); Hematocrit 31.6 % (37.0-47.0); Hemoglobin 10.7 g/dL (12.0-15.0); Immature Granulocyte Absolute 0.02 K/mm3 (0.00-0.031); Immature Granulocyte Percent A 0.4 % (0-0.5); Lymphocytes Percent Auto 17.9 % (18.3-44.2); Mean Corpuscular HGB Conc 33.9 g/dl (32-36); Mean Corpuscular Hemoglobin 29.2 pg (26-34); Mean Corpuscular Volume 86.3 fl (80-100); Mean Platelet Volume 9.3 fl (7.4-10.4); Monocytes Absolute Auto 0.7 K/mm3 (0.1-0.6); Monocytes Percent Auto 11.6 % (2.6-8.5); Neutrophils Absolute Auto 3.5 K/mm3 (1.3-6.7); Neutrophils Percent Auto 63.5 % (45.5-73.1); Platelet Count Result 260 k/mm3 (150-375); Red Blood Count 3.66 M/mm3 (4.2-5.4); White Blood Count 5.6 K/mm3 (4.5-10.0)
[2023-10-22 04:57] LABS: Alanine Aminotransferase 42 U/L (6-35); Albumin Level 3.3 g/dL (3.5-5.1); Alkaline Phosphatase 81 U/L (38-126); Anion Gap 10 mmol/L (4-12); Aspartate Amino Transferase 23 U/L (14-36); Bilirubin,Total 0.4 mg/dL (0.2-1.3); Blood Urea Nitrogen 18 mg/dL (7-17); Calcium 8.4 mg/dL (8.4-10.2); Carbon Dioxide 24 mmol/L (22-30); Chloride 105 mmol/L (98-107); Estimated CRCL calculation 86 ml/min; Estimated Glomerular Filt Rate > 60; Glucose 120 mg/dL (65-110); Magnesium 1.9 mg/dL (1.6-2.3); Phosphorus 4.3 mg/dL (2.5-4.5); Potassium 3.1 mmol/L (3.4-5.0); Sodium 139 mmol/L (137-145); Triglycerides 103 mg/dL (<150)
[2023-10-22 05:20] LABS: Alveolar/Arterial O2 Gradient 98.3 mmHg; Base Excess ABG 2.3 mEq/l (+/-2.0); Carboxyhemoglobin 0.3 % THb (0-2.0); Fractional Inspired Oxygen 30 %; HCO3 ABG 24.8 mEq/l (22.0-26.0); Methemoglobin ABG 0.3 %THb (0-1.5); Oxygen Content ABG 15.9 %vol (16.0-22.0); Oxygen Saturation ABG 96.6 % (95.0-100.0); Oxyhemoglobin 95.4 % THb (90.0-100.0); Total Hemoglobin 11.8 g/dL (12.0-18.0)
[2023-10-22 05:21] LABS: Device VENTILATOR; Modified Allen's Test Pass; Site Drawn RIGHT RADIAL; pH ABG 7.508 (7.350-7.450)
[2023-10-22 05:22] LABS: Arterial Blood Gas PEEP 5 cmH2O; Arterial Blood Gas Tidal Volume 420 ml; Arterial Blood Gas Vent Mode CMV; Arterial Blood Gas Ventilator rate 18 /MIN
[2023-10-22] MEDS: IPRATROPIUM 0.5 MG/ALBUTEROL SULFATE 2.5 MG AMPUL.NEB 3 ML INHALATION ×3 (07:32→20:02)
[2023-10-22] MEDS: METOPROLOL TARTRATE 50 MG TAB PO (07:50)
[2023-10-22] MEDS: POTASSIUM CHLORIDE 20 MEQ PACKET (FOR LIQUID) 40 MEQ FEED TUBE (07:51)
[2023-10-22] MEDS: ENOXAPARIN 40 MG/0.4 ML SYRINGE SUB-Q (07:52)
[2023-10-22] MEDS: PANTOPRAZOLE SODIUM IV 40 MG VIAL IV PUSH ×2 (07:52→20:22)
[2023-10-22] MEDS: KCL 40 MEQ/WATER 100 ML 100 ML 25 ML IVPB ×2 (07:52→15:48)
[2023-10-22] MEDS: levETIRAcetam 500MG/NACL 100ML 500 MG/100 ML BAG 200 MG IVPB (07:52)
[2023-10-22] MEDS: MINERAL OIL/WHITE PETROLATUM OINTMENT 1 APPLIC EACH EYE (07:53)
[2023-10-22 08:13] LABS: Alveolar/Arterial O2 Gradient 89.4 mmHg; Base Excess ABG 1.9 mEq/l (+/-2.0); Fractional Inspired Oxygen 30 %; HCO3 ABG 25.5 mEq/l (22.0-26.0); Oxygen Content ABG 15.9 %vol (16.0-22.0); Oxygen Saturation ABG 96.6 % (95.0-100.0); Oxyhemoglobin 95.3 % THb (90.0-100.0); PCO2 ABG 36.4 mmHg (35.0-45.0); PO2 ABG 81.7 mmHg (80.0-100.0); PO2 FiO2 Ratio Arterial Blood 2.72 %; Total Hemoglobin 11.8 g/dL (12.0-18.0); pH ABG 7.464 (7.350-7.450)
[2023-10-22 08:16] LABS: Device VENTILATOR; Site Drawn RIGHT RADIAL
[2023-10-22 08:17] LABS: Arterial Blood Gas PEEP 5 cmH2O; Arterial Blood Gas Pressure Support 8 cmH2O; Arterial Blood Gas Vent Mode PRESSURE SUPPORT
--- NOTE | 2023-10-22 08:21 | WPDINTPN ---
Progress Note: A&P Assessment and Plan (1) Cardiac arrest: Code(s): I46.9 - Cardiac arrest, cause unspecified Status: Acute Assessment and Plan: Patient presented with the VFib arrest, was defibrillated in the field, given amiodarone infusion, 2 rounds of CPR before return of spontaneous circulation. CPR was started after EMS arrived at home which was few minutes after they were called. -patient completed protocol of target temperature management -likely cause could be related to ischemic heart disease, hypoxia related to pneumonia, CHF, electrolyte abnormalities -continue Keppra for seizure prophylaxis -appreciate cardiology following the patient. Continue metoprolol for hypertrophic cardiomyopathy per Cardiology -per discussion with Cardiology she will require ischemic workup with an angiogram and possible EP consultation for AICD placement enoxaparin for her hypertrophic cardiomyopathy. Management deferred to Cardiology -continue diuretics 10/18/2023: Echocardiogram Summary 1. Findings are suggestive mostly of hypertrophic cardiomyopathy, apical variety. EF> 70%, grade 2 diastolic dysfunction 2. Left atrial enlargement. 3. Mitral annular calcium. 4. Severe concentric LVH with essentially olliteration of the cavity in end systole. 5. No evidence of dynamic LVOT obstruction 10/16: CT scan of the brain with no acute intracranial finding. 10/16: CT of the cervical spine showed no acute osseous abnormality of the cervical spine. (2) Acute respiratory failure: Code(s): J96.00 - Acute respiratory failure, unspecified whether with hypoxia or hypercapnia Status: Acute Assessment and Plan: Acute respiratory failure in light of cardiac arrest -pneumonia on CTA, no pulmonary embolism. She also has pulmonary edema -sedation holiday was performed and 8/5 PSV SBT done for more than 1 hour. RSBI, ABGI and Vitals acceptable. Pt awake and following commands. Will extubate and monitor. NPO for now. -chest x-ray and ABGs reviewed, ventilator settings reviewed -continue Lasix -continue bronchodilators -continue antibiotics as below -sedation discontinue -chest x-ray this morning reviewed as above CTA chest abdomen and pelvis: No pulmonary embolism, bilateral atelectatic changes in the upper lobes, bibasilar subsegmental pneumonia more on the right side, cardiomegaly with LVH, no acute abdominal process with no evidence of appendicitis, diverticulitis or intestinal obstruction. (3) Severe sepsis: Code(s): A41.9 - Sepsis, unspecified organism; R65.20 - Severe sepsis without septic shock Status: Acute Assessment and Plan: Patient with cardiac arrest, lactic acidosis, infiltrates, pneumonia on CTA and chest x-ray -s completed course of azithromycin, ceftriaxone. -10/16: Blood cultures -preliminary results are negative x2 -10/17: Urine culture negative so far -10/17: Negative so far -lactic acid has resolved (4) RANI (acute kidney injury): Code(s): N17.9 - Acute kidney failure, unspecified Status: Acute Assessment and Plan: Acute kidney injury, creatinine 1.50 on admission -received adequate IV fluids -urine output has been adequate and creatinine has normalized -monitor renal function, electrolytes and urine output -will continue to diurese patient today (5) Electrolyte imbalance: Code(s): E87.8 - Other disorders of electrolyte and fluid balance, not elsewhere classified Status: Acute Assessment and Plan: Replace potassium (6) Essential hypertension: Code(s): I10 - Essential (primary) hypertension Status: Acute Assessment and Plan: History of essential hypertension, currently on metoprolol per Cardiology (7) Pneumonia: Code(s): J18.9 - Pneumonia, unspecified organism Status: Acute Assessment and Plan: Continue treatment and antibiotics as above (8) Elevated troponin: Code(s): R79.89
--- NOTE | 2023-10-22 09:37 | PM.PNCARD ---
Progress Note: A&P Assessment and Plan (1) Cardiac arrest: Code(s): I46.9 - Cardiac arrest, cause unspecified Status: Acute Assessment and Plan: Possibly related to arrhythmia from possible hypertrophic cardiomyopathy, apical variant. Eventual cardiac catheterization and electrophysiology evaluation plus/minus cardiac MRI. Will need transfer to facility with EP services - in light of her VF arrest secondary prevention ICD is indicated. (2) Essential hypertension: Code(s): I10 - Essential (primary) hypertension Status: Acute Assessment and Plan: Continue Metoprolol (3) Hypokalemia: Code(s): E87.6 - Hypokalemia Status: Acute Assessment and Plan: Keep electrolytes optimized (4) Acute respiratory failure: Code(s): J96.00 - Acute respiratory failure, unspecified whether with hypoxia or hypercapnia Status: Acute Assessment and Plan: Just extubated this morning. Subjective Date/time seen: 10/22/23 09:37 Interval history: Reason for visit: Cardiac arrest HPI: This is a 53-year-old woman I am seeing at the request of the hospitalist because of a ventricular fibrillation arrest which occurred outside of the hospital yesterday evening. The patient was in her home apparently with her daughter visiting and was found to be unresponsive by the daughter who left the room in came back a short time later. 911 was called and she was found to be in ventricular fibrillation and resuscitation efforts ensued. She had 2 rounds of ACLS protocol with CPR, defibrillation and epinephrine before spontaneous circulation was restored. She was brought to the emergency room at [facility] where she was intubated and placed on ventilator support. She had 4 electrocardiograms done in the emergency room none of which show evidence of ST elevation OR. I was contacted last night on the phone about the situation at that point. Since there was no evidence of STEMI the decision was made not to bring her to the cardiac catheterization lab as an emergency. She apparently does not have any prior cardiac history she does have a history of significant hypertension and is obese with BMI of 37. There were some questionable mention in the chart of sleep apnea. The patient has electrocardiograms and my review demonstrate impressive evidence of left ventricular hypertrophy with secondary repolarization abnormality. Troponin levels are slightly elevated at 0.097. Echocardiogram being done at bedside demonstrates impressive left ventricular hypertrophy with asymmetrical septal thickening. The study is being done as I entered the room to see her so obviously I have not performed a formal reading at this point. Since she is intubated on the ventilator in the ICU and on hypothermia protocol obviously no additional history is available at this time Date of service 10/18: Out of hospital VFib arrest. 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 She does not have LVOT gradient by echo. Patient is neurologically improved off of sedation, not following commands yet but moving all 4 extremities. Date of service 10/20/2023: She is awake and alert and oriented and follows commands when sedation is off. Precedex restarted though secondary to agitation. Rhythm stable Date of service 10/21/2023: Remains intubated and on Precedex. Date of service 10/21: Just extubated. Tele stable. Exam Const: General: no acute distress HENMT: Mouth: Yes moist mucous membranes Resp: Effort & Inspection: normal respiratory effort Cardio: Rate: regular rate Rhythm: regular rhythm Skin: General skin exam: normal color Psych: Mental Status: mental status grossly normal Affect: normal affect Objective Data Vital Signs Vital Signs: Vital Signs - 24 hr 10/21/23 10:00 10/21/23 10:00 10/21/23 11:00 Temperature 35.9 C L Pulse Rate 64 64 62 Resp
--- NOTE | 2023-10-22 10:58 | PCFNICU ---
ICU Rounding Note: Pt current nutrition is NPO. Nutrition recommendation: advance diet as tolerated per MD orders. Last recorded weight is 107.3 kg, down from 113.5 kg on admit. Bowel Motility: +BM reported 10/21 Labs Reviewed: Glu 120, K 3.1,BUN 18, Alb 3.3 Meds Noted: Protonix, Lovenox, Keppra, Reglan, Lopressor Skin:WNL Additional Notes: Patient has been extubated. NPO at this time. Recommend advancing as tolerated per MD orders. Follow daily in ICU rounds, reassess every 3 days.
[2023-10-22 11:58] LABS: Glucose Point of Care 123 mg/dl (65-105)
[2023-10-22] MEDS: FUROSEMIDE INJ 40 MG/4 ML VIAL IV PUSH (11:58)
[2023-10-22 12:05] LABS: Glucose Point of Care 58 mg/dl (65-105)
[2023-10-22] MEDS: DEXTROSE 50% 25 GM/50 ML SYRINGE IV PUSH (12:06)
[2023-10-22 13:01] LABS: Glucose Point of Care 111 mg/dl (65-105)
--- NOTE | 2023-10-22 13:02 | PC.NURSE ---
pt pulled claros cath out with bulb inflated and intact, re-inserted a new claros cath without difficulty, retraint both wrists and encouraged pt not to pull anything off that is connected to her
--- NOTE | 2023-10-22 15:23 | PM.IMPN ---
Progress Note: A&P Assessment and Plan (1) NSTEMI (non-ST elevated myocardial infarction): Code(s): I21.4 - Non-ST elevation (NSTEMI) myocardial infarction Status: Acute (2) RANI (acute kidney injury): Code(s): N17.9 - Acute kidney failure, unspecified Status: Acute Plan (1) Cardiac arrest: Code(s): I46.9 - Cardiac arrest, cause unspecified Status: Acute Assessment and Plan: Patient presented with the VFib arrest, was defibrillated in the field, given amiodarone infusion, 2 rounds of CPR before return of spontaneous circulation. CPR was started after EMS arrived at home which was few minutes after they were called. CT scan of the brain with no acute intracranial finding. CT of the cervical spine showed no acute osseous abnormality of the cervical spine. Started patient on Keppra for seizure prophylaxis Etiology:consider ischemic heart disease, hypoxia related to pneumonia, CHF, electrolyte abnormalities Patient completed target temperature management and completed re-warming She was having fevers and then hypothermia requiring a Jihan Hugger; now euthermic Cardiology following. Wean MV as tolerated. Appreciate cardiology consultation, math and sciences department chair recommends to transfer to facility with EP services - in light of her VF arrest secondary prevention ICD is indicated. Now patient is not on amiodarone drip. Management per math and sciences department chair (2) Acute respiratory failure: Code(s): J96.00 - Acute respiratory failure, unspecified whether with hypoxia or hypercapnia Status: Acute Assessment and Plan: Acute respiratory failure in light of cardiac arrest CTA chest, abdomen and pelvis: No pulmonary embolism, bilateral atelectatic changes in the upper lobes, bibasilar subsegmental pneumonia more on the right side, cardiomegaly with LVH, no acute abdominal process with no evidence of appendicitis, diverticulitis or intestinal obstruction. Resp failure related to cardiac arrest, PNA. Stable on MV. CXR reviewed. Continue antibiotics and bronchodilators. Lasix IV as needed. Today patient is extubated, tolerated extubation well (3) Severe sepsis: Code(s): A41.9 - Sepsis, unspecified organism; R65.20 - Severe sepsis without septic shock Status: Acute Assessment and Plan: Patient with cardiac arrest, lactic acidosis, infiltrates, pneumonia on CTA Patient has received adequate amount of IV fluids Started on azithromycin, ceftriaxone and vancomycin (10/16) -10/16: BCx NGTD -10/17: UCx negative -10/17: Sputum culture negative -10/17: BCx NGTD Was having temperature instability but now euthermic Lactic acidosis resolved. It was likely related to cardiac arrest, decreased perfusion, hypoxia Glucose better. Continue abx (4) RANI (acute kidney injury): Code(s): N17.9 - Acute kidney failure, unspecified Status: Acute Assessment and Plan: Acute kidney injury, creatinine 1.1 on admission but climbed to 1.5 She has received adequate IV fluids Excellent UOP. Repeat creatinine normal Off IV fluids now Monitor renal function, electrolytes and urine output Chronic acute renal failure has resolved, creatinine 0.8 (5) Essential hypertension: Code(s): I10 - Essential (primary) hypertension Status: Acute Assessment and Plan: History of essential hypertension, currently on metoprolol per Cardiology Continue metoprolol Continue to monitor vital signs (6) Pneumonia: Code(s): J18.9 - Pneumonia, unspecified organism Status: Acute Assessment and Plan: As above WBC normal As above. Follow. Continue treatment plan. (7) Elevated troponin: Code(s): R79.89 - Other specified abnormal findings of blood chemistry Status: Acute Assessment and Plan: Elevated troponins to 0.097. EKG did not show any ST elevation Echo showing EF>70%, LV chamber size is normal, severe concentric incre
[2023-10-22] MEDS: ACETAMINOPHEN ELIXIR 325 MG/10.15 ML UDC 650 MG PO (15:34)
[2023-10-22] MEDS: METOPROLOL TARTRATE INJ 5 MG/5 ML VIAL IV PUSH ×2 (15:49→16:17)
--- NOTE | 2023-10-22 15:57 | ECG_ITS ---
Test Date: 2023-10-22 16:02:35 Measurements Intervals [place] Rate: 150 P: -11 RI: 82 QRS: 5 QRSD: 124 T: 128 QT: 308 QTc: 487 Interpretive Statements ATRIAL FLUTTER/TACHYCARDIA WITH RAPID VENTRICULAR RESPONSE INTRAVENTRICULAR CONDUCTION DELAY LEFT VENTRICULAR HYPERTROPHY AND ST-T CHANGE BASELINE WANDER- I, III ABNORMAL ECG Compared to ECG 10/20/2023 06:04:17 ATRIAL FLUTTER/TACHYCARDIA NOW PRESENT Electronically Signed On 10-22-2023 20:35:19 CDT by Casey Lopez D.O.
[2023-10-22] MEDS: AMIODARONE 150 MG/D5W 100 ML 150 MG/100 ML BAG 600 MG IV CONT (16:19)
[2023-10-22] MEDS: LORazepam INJ (*CRX) 2 MG/ML VIAL 0.5 MG IV PUSH ×2 (16:41→20:22)
--- NOTE | 2023-10-22 16:50 | PC.NURSE ---
after pt went into a fib/flutter/svt, notified Dr. Blanc and recieved new orders for a one time dose of metropolol, heart rate remained unchanged, Dr. Dos Santos here and suggested for us to call cardiology, Dr. Faust notified of heart rate, EKG obtained and sent to her, acid regenerator, another dose of metoprolol given per ordered, a one time amiodorone bolus given as ordered, after in heart rate remained the same, 140's, notified Dr. Faust again and amiodorone 1mg prem started per ordered
[2023-10-22] MEDS: AMIODARONE 360 MG/D5W 200 ML 360 MG/200 ML BAG 33.33 MG IV CONT (17:13)
[2023-10-22] MEDS: levETIRAcetam 500MG/NACL 100ML 500 MG/100 ML BAG 400 MG IVPB (20:23)
[2023-10-22 20:39] LABS: Glucose Point of Care 96 mg/dl (65-105)
[2023-10-22] MEDS: AMIODARONE 360 MG/D5W 200 ML 360 MG/200 ML BAG 16.67 MG IV CONT (22:22)
[2023-10-22] MEDS: ACETAMINOPHEN 650 MG SUPPOSITORY RECTAL (22:23)
[2023-10-23] VITALS (21 sets, daily range): BP systolic 148–187; BP diastolic 72–106; PULSE 91–121; RESP 18–31; TEMP 36.6–38.8; O2SAT 92–98
[2023-10-23 00:01] LABS: Glucose Point of Care 99 mg/dl (65-105)
[2023-10-23] MEDS: hydrALAZINE HCL 20 MG/ML VIAL 10 MG IV PUSH (02:05)
--- NOTE | 2023-10-23 03:30 | PCRCNOTE ---
Patient stopped RT before RT could get updraft treatment mask on patient's face. Patient refused both 1999 and 199 updraft treatments stating she does not like the aerosol mist. RT encouraged use, pt again refused.
[2023-10-23 04:17] LABS: Basophils Percent Auto 0.4 % (0.2-1.2); Eosinophils Absolute Auto 0.1 K/mm3 (0-0.3); Eosinophils Percent Auto 1.3 % (0-4.4); Hematocrit 34.9 % (37.0-47.0); Hemoglobin 11.7 g/dL (12.0-15.0); Immature Granulocyte Absolute 0.04 K/mm3 (0.00-0.031); Immature Granulocyte Percent A 0.5 % (0-0.5); Lymphocytes Percent Auto 16.7 % (18.3-44.2); Mean Corpuscular HGB Conc 33.5 g/dl (32-36); Mean Corpuscular Hemoglobin 28.8 pg (26-34); Mean Platelet Volume 9.2 fl (7.4-10.4); Monocytes Absolute Auto 1.2 K/mm3 (0.1-0.6); Monocytes Percent Auto 13.7 % (2.6-8.5); Neutrophils Absolute Auto 5.6 K/mm3 (1.3-6.7); Neutrophils Percent Auto 67.4 % (45.5-73.1); Platelet Count Result 299 k/mm3 (150-375); Red Blood Count 4.06 M/mm3 (4.2-5.4); White Blood Count 8.4 K/mm3 (4.5-10.0)
[2023-10-23 04:34] LABS: Alanine Aminotransferase 38 U/L (6-35); Albumin Level 3.7 g/dL (3.5-5.1); Alkaline Phosphatase 95 U/L (38-126); Anion Gap 9 mmol/L (4-12); Aspartate Amino Transferase 39 U/L (14-36); Bilirubin,Total 0.5 mg/dL (0.2-1.3); Blood Urea Nitrogen 19 mg/dL (7-17); Calcium 8.7 mg/dL (8.4-10.2); Carbon Dioxide 26 mmol/L (22-30); Chloride 106 mmol/L (98-107); Estimated CRCL calculation 70 ml/min; Estimated Glomerular Filt Rate > 60; Glucose 115 mg/dL (65-110); Magnesium 1.8 mg/dL (1.6-2.3); Phosphorus 4.3 mg/dL (2.5-4.5); Potassium 3.6 mmol/L (3.4-5.0); Sodium 141 mmol/L (137-145)
[2023-10-23] MEDS: CENTRAL LINE FLUSH 10 ML IV PUSH ×2 (04:44→20:44)
[2023-10-23 05:35] LABS: Alveolar/Arterial O2 Gradient 76.3 mmHg; Base Excess ABG 1.4 mEq/l (+/-2.0); Carboxyhemoglobin 0.1 % THb (0-2.0); Fractional Inspired Oxygen 28 %; HCO3 ABG 24.1 mEq/l (22.0-26.0); Methemoglobin ABG 0.1 %THb (0-1.5); Oxygen Content ABG 17.3 %vol (16.0-22.0); Oxygen Saturation ABG 97.2 % (95.0-100.0); Oxyhemoglobin 96.7 % THb (90.0-100.0); PCO2 ABG 32.3 mmHg (35.0-45.0); PO2 ABG 85.2 mmHg (80.0-100.0); PO2 FiO2 Ratio Arterial Blood 3.04 %; Reduced Hemoglobin 3.1 %THb (0-5.0); Total Hemoglobin 12.7 g/dL (12.0-18.0); pH ABG 7.491 (7.350-7.450)
[2023-10-23 05:36] LABS: Device NASAL CANNULA; Site Drawn RIGHT BRACHIAL
[2023-10-23 07:30] LABS: Glucose Point of Care 109 mg/dl (65-105)
[2023-10-23] MEDS: levETIRAcetam 500MG/NACL 100ML 500 MG/100 ML BAG 400 MG IVPB ×2 (08:01→20:44)
[2023-10-23] MEDS: PANTOPRAZOLE SODIUM IV 40 MG VIAL IV PUSH ×2 (08:01→20:44)
[2023-10-23] MEDS: ENOXAPARIN 40 MG/0.4 ML SYRINGE SUB-Q (08:02)
[2023-10-23] MEDS: METOPROLOL TARTRATE INJ 5 MG/5 ML VIAL IV PUSH ×4 (08:13→23:39)
--- NOTE | 2023-10-23 09:09 | WPDINTPN ---
Progress Note: A&P Assessment and Plan (1) Cardiac arrest: Code(s): I46.9 - Cardiac arrest, cause unspecified Status: Acute Assessment and Plan: Patient presented with the VFib arrest, was defibrillated in the field, given amiodarone infusion, 2 rounds of CPR before return of spontaneous circulation. CPR was started after EMS arrived at home which was few minutes after they were called. -patient completed protocol of target temperature management -likely cause could be related to ischemic heart disease, hypoxia related to pneumonia, CHF, electrolyte abnormalities -continue Keppra for seizure prophylaxis -appreciate cardiology following the patient. Continue metoprolol for hypertrophic cardiomyopathy per Cardiology -per discussion with Cardiology she will require ischemic workup with an angiogram and possible EP consultation for AICD placement enoxaparin for her hypertrophic cardiomyopathy. Management deferred to Cardiology -continue diuretics as needed 10/18/2023: Echocardiogram Summary 1. Findings are suggestive mostly of hypertrophic cardiomyopathy, apical variety. EF> 70%, grade 2 diastolic dysfunction 2. Left atrial enlargement. 3. Mitral annular calcium. 4. Severe concentric LVH with essentially olliteration of the cavity in end systole. 5. No evidence of dynamic LVOT obstruction 10/16: CT scan of the brain with no acute intracranial finding. 10/16: CT of the cervical spine showed no acute osseous abnormality of the cervical spine. (2) Acute respiratory failure: Code(s): J96.00 - Acute respiratory failure, unspecified whether with hypoxia or hypercapnia Status: Acute Assessment and Plan: Acute respiratory failure in light of cardiac arrest -pneumonia on CTA, no pulmonary embolism. She also has pulmonary edema - 10/21 sedation holiday was performed and / PSV SBT done for more than 1 hour. RSBI, ABGI and Vitals acceptable. Pt awake and following commands. Patient was extubated -now on 1 L nasal cannula -incentive spirometry -continue Lasix as needed -discontinue bronchodilators -completed course of antibiotics CTA chest abdomen and pelvis: No pulmonary embolism, bilateral atelectatic changes in the upper lobes, bibasilar subsegmental pneumonia more on the right side, cardiomegaly with LVH, no acute abdominal process with no evidence of appendicitis, diverticulitis or intestinal obstruction. (3) Severe sepsis: Code(s): A41.9 - Sepsis, unspecified organism; R65.20 - Severe sepsis without septic shock Status: Acute Assessment and Plan: Patient with cardiac arrest, lactic acidosis, infiltrates, pneumonia on CTA and chest x-ray -s completed course of azithromycin, ceftriaxone. -10/16: Blood cultures -preliminary results are negative x2 -10/17: Urine culture negative so far -10/17: Negative so far -lactic acid has resolved (4) RANI (acute kidney injury): Code(s): N17.9 - Acute kidney failure, unspecified Status: Acute Assessment and Plan: Acute kidney injury, creatinine 1.50 on admission -received adequate IV fluids -urine output has been adequate and creatinine has normalized -monitor renal function, electrolytes and urine output Hold further diuresis at this time (5) Electrolyte imbalance: Code(s): E87.8 - Other disorders of electrolyte and fluid balance, not elsewhere classified Status: Acute Assessment and Plan: Replace potassium (6) Essential hypertension: Code(s): I10 - Essential (primary) hypertension Status: Acute Assessment and Plan: History of essential hypertension, currently npo IV Lopressor and IV p.r.n. labetalol ordered Once patient is able to take p.o. will resume medications a beta-kenya (7) Pneumonia: Code(s): J18.9 - Pneumonia, unspecified organism Status: Acute Assessment and Plan: Completed course of antibiotics (8) Elevated troponin: Code(s):
[2023-10-23 09:28] LABS: NT Pro B Type Natriuretic Pept 15200 pg/mL (19.9-100)
--- NOTE | 2023-10-23 09:37 | PC.NURSE ---
Spoke with Dr. Dos Santos regarding initiating a transfer to a facility with an electrophysiology department. He stated that cardiology or Dr. Blanc needed to do that. I informed him that Dr. Blanc has downgraded the patient to IMU status and that he is the attending/admitting physician and cardiology is a consult. He again stated that cardiology or Dr. Blanc needed to initiate the transfer. We ended the phone call and I informed Dr. Blanc of the conversation. Dr. Blanc had me put the transfer to IMU order in under his name and then I called Mari Navarro STRADDLE CARRIER OPERATOR with cardiology and informed her of the issue. She said that she will try and initiate a transfer to a facility with a EP department.
[2023-10-23] MEDS: AMIODARONE 360 MG/D5W 200 ML 360 MG/200 ML BAG 16.67 MG IV CONT (10:05)
[2023-10-23] MEDS: LABETALOL HCL INJ 100 MG/20 ML VIAL 20 MG IV PUSH (10:06)
--- NOTE | 2023-10-23 10:06 | PCFNICU ---
ICU Rounding Note: Pt current nutrition is NPO. Nutrition recommendation: diet advancement per speech recommendations following MBS Last recorded weight is 108.5 kg. Bowel Motility: +BM 10/21 Labs Reviewed:Hgb:11.7, HCT:34.9, Glu:115 Meds Noted: reglan, lovenox, protonix Skin: WNL Additional Notes: Pt extubated yesterday, NPO, speech bedside eval today with recommendations for a MBS. Following daily in ICU rounds. Monitoring diet orders, labs, weights, plan of care Follow daily in ICU rounds, reassess every friday and friday.
--- NOTE | 2023-10-23 10:16 | PM.IMPN ---
Progress Note: A&P Assessment and Plan (1) NSTEMI (non-ST elevated myocardial infarction): Code(s): I21.4 - Non-ST elevation (NSTEMI) myocardial infarction Status: Acute (2) RANI (acute kidney injury): Code(s): N17.9 - Acute kidney failure, unspecified Status: Acute Plan (1) Cardiac arrest: Code(s): I46.9 - Cardiac arrest, cause unspecified Status: Acute Assessment and Plan: Patient presented with the VFib arrest, was defibrillated in the field, given amiodarone infusion, 2 rounds of CPR before return of spontaneous circulation. CPR was started after EMS arrived at home which was few minutes after they were called. CT scan of the brain with no acute intracranial finding. CT of the cervical spine showed no acute osseous abnormality of the cervical spine. Started patient on Keppra for seizure prophylaxis Etiology:consider ischemic heart disease, hypoxia related to pneumonia, CHF, electrolyte abnormalities Patient completed target temperature management and completed re-warming She was having fevers and then hypothermia requiring a Jihan Hugger; now euthermic Cardiology following. Wean MV as tolerated. Appreciate cardiology consultation, mill tender washing recommends to transfer to facility with EP services - in light of her VF arrest secondary prevention ICD is indicated. Management per mill tender washing (2) Acute respiratory failure: Code(s): J96.00 - Acute respiratory failure, unspecified whether with hypoxia or hypercapnia Status: Acute Assessment and Plan: Acute respiratory failure in light of cardiac arrest CTA chest, abdomen and pelvis: No pulmonary embolism, bilateral atelectatic changes in the upper lobes, bibasilar subsegmental pneumonia more on the right side, cardiomegaly with LVH, no acute abdominal process with no evidence of appendicitis, diverticulitis or intestinal obstruction. Resp failure related to cardiac arrest, PNA. Stable on MV. CXR reviewed. Continue antibiotics and bronchodilators. Lasix IV as needed. Today patient is extubated, tolerated extubation well (3) Severe sepsis: Code(s): A41.9 - Sepsis, unspecified organism; R65.20 - Severe sepsis without septic shock Status: Acute Assessment and Plan: Patient with cardiac arrest, lactic acidosis, infiltrates, pneumonia on CTA Patient has received adequate amount of IV fluids Started on azithromycin, ceftriaxone and vancomycin (10/16) -10/16: BCx NGTD -10/17: UCx negative -10/17: Sputum culture negative -10/17: BCx NGTD Was having temperature instability but now euthermic Lactic acidosis resolved. It was likely related to cardiac arrest, decreased perfusion, hypoxia Glucose better. Continue abx (4) RANI (acute kidney injury): Code(s): N17.9 - Acute kidney failure, unspecified Status: Acute Assessment and Plan: Acute kidney injury, creatinine 1.1 on admission but climbed to 1.5 She has received adequate IV fluids Excellent UOP. Repeat creatinine normal Off IV fluids now Monitor renal function, electrolytes and urine output Chronic acute renal failure has resolved, creatinine 0.8 (5) Essential hypertension: Code(s): I10 - Essential (primary) hypertension Status: Acute Assessment and Plan: History of essential hypertension, currently on metoprolol per Cardiology Continue metoprolol Continue to monitor vital signs (6) Pneumonia: Code(s): J18.9 - Pneumonia, unspecified organism Status: Acute Assessment and Plan: As above WBC normal As above. Follow. Continue treatment plan. (7) Elevated troponin: Code(s): R79.89 - Other specified abnormal findings of blood chemistry Status: Acute Assessment and Plan: Elevated troponins to 0.097. EKG did not show any ST elevation Echo showing EF>70%, LV chamber size is normal, severe concentric increased LV wall thickness that essentially o
--- NOTE | 2023-10-23 11:29 | PM.PNCARD ---
Progress Note: A&P Assessment and Plan (1) Cardiac arrest: Code(s): I46.9 - Cardiac arrest, cause unspecified Status: Acute Assessment and Plan: Possibly related to arrhythmia from possible hypertrophic cardiomyopathy, apical variant. Eventual cardiac catheterization and electrophysiology evaluation plus/minus cardiac MRI. Will need transfer to facility with EP services - in light of her VF arrest secondary prevention ICD is indicated. (2) Essential hypertension: Code(s): I10 - Essential (primary) hypertension Status: Acute Assessment and Plan: Continue Metoprolol (3) Hypokalemia: Code(s): E87.6 - Hypokalemia Status: Acute Assessment and Plan: Potassium today is 3.6. Will give 40 mEq potassium chloride p.o. x1 (4) Acute respiratory failure: Code(s): J96.00 - Acute respiratory failure, unspecified whether with hypoxia or hypercapnia Status: Acute Assessment and Plan: Extubated (5) Atrial flutter: Code(s): I48.92 - Unspecified atrial flutter Status: Acute Assessment and Plan: Back in sinus rhythm. Transient atrial flutter yesterday. Potassium was low. On amiodarone drip. Transition to p.o. amiodarone 20 mg p.o. b.i.d. if she passes her swallow study. DC IV amiodarone at that time Subjective Date/time seen: 10/23/23 11:29 Interval history: Reason for visit: Cardiac arrest HPI: This is a 53-year-old woman I am seeing at the request of the hospitalist because of a ventricular fibrillation arrest which occurred outside of the hospital yesterday evening. The patient was in her home apparently with her daughter visiting and was found to be unresponsive by the daughter who left the room in came back a short time later. 911 was called and she was found to be in ventricular fibrillation and resuscitation efforts ensued. She had 2 rounds of ACLS protocol with CPR, defibrillation and epinephrine before spontaneous circulation was restored. She was brought to the emergency room at [place] where she was intubated and placed on ventilator support. She had 4 electrocardiograms done in the emergency room none of which show evidence of ST elevation [place]. I was contacted last night on the phone about the situation at that point. Since there was no evidence of STEMI the decision was made not to bring her to the cardiac catheterization lab as an emergency. She apparently does not have any prior cardiac history she does have a history of significant hypertension and is obese with BMI of 37. There were some questionable mention in the chart of sleep apnea. The patient has electrocardiograms and my review demonstrate impressive evidence of left ventricular hypertrophy with secondary repolarization abnormality. Troponin levels are slightly elevated at 0.097. Echocardiogram being done at bedside demonstrates impressive left ventricular hypertrophy with asymmetrical septal thickening. The study is being done as I entered the room to see her so obviously I have not performed a formal reading at this point. Since she is intubated on the ventilator in the ICU and on hypothermia protocol obviously no additional history is available at this time Date of service 10/18: Out of hospital VFib arrest. 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 She does not have LVOT gradient by echo. Patient is neurologically improved off of sedation, not following commands yet but moving all 4 extremities. Date of service 10/20/2023: She is awake and alert and oriented and follows commands when sedation is off. Precedex restarted though secondary to agitation. Rhythm stable Date of service 10/21/2023: Remains intubated and on Precedex. Date of service 10/21: Just extubated. Tele stable. Date of service 10/23/2023: Had a few hours of atrial flutter yesterday which did convert with amiodarone. She remains on
[2023-10-23 11:53] LABS: Glucose Point of Care 113 mg/dl (65-105)
[2023-10-23 16:21] LABS: Glucose Point of Care 109 mg/dl (65-105)
[2023-10-23] MEDS: AMIODARONE HCL 200 MG TABLET PO (20:43)
[2023-10-23] MEDS: METOPROLOL TARTRATE 50 MG TAB PO (20:44)
--- NOTE | 2023-10-23 23:33 | PC.NURSE ---
pt transfered to room 207 report given Saul FIGUEROA. pt verb no complaints
[2023-10-23] MEDS: ALPRAZolam (*CRX) 0.25 MG TABLET PO (23:39)
[2023-10-23] MEDS: hydrOXYzine HCL 25 MG TABLET 50 MG PO (23:39)
[2023-10-23 23:58] LABS: Glucose Point of Care 102 mg/dl (65-105)
[2023-10-24] VITALS (17 sets, daily range): BP systolic 131–176; BP diastolic 73–115; PULSE 85–149; RESP 18–22; TEMP 36.3–36.9; O2SAT 93–97
[2023-10-24 04:23] LABS: Basophils Absolute Auto 0.1 K/mm3 (0.0-0.1); Basophils Percent Auto 0.6 % (0.2-1.2); Eosinophils Absolute Auto 0.4 K/mm3 (0-0.3); Eosinophils Percent Auto 4.6 % (0-4.4); Hematocrit 37.3 % (37.0-47.0); Hemoglobin 12.1 g/dL (12.0-15.0); Immature Granulocyte Absolute 0.05 K/mm3 (0.00-0.031); Immature Granulocyte Percent A 0.6 % (0-0.5); Lymphocytes Absolute Auto 1.67 K/mm3 (0.9-3.2); Mean Corpuscular HGB Conc 32.4 g/dl (32-36); Mean Corpuscular Hemoglobin 28.5 pg (26-34); Mean Corpuscular Volume 87.8 fl (80-100); Mean Platelet Volume 9.3 fl (7.4-10.4); Monocytes Absolute Auto 1.3 K/mm3 (0.1-0.6); Monocytes Percent Auto 14.5 % (2.6-8.5); Neutrophils Absolute Auto 5.3 K/mm3 (1.3-6.7); Neutrophils Percent Auto 60.7 % (45.5-73.1); Platelet Count Result 275 k/mm3 (150-375); Red Blood Count 4.25 M/mm3 (4.2-5.4); White Blood Count 8.8 K/mm3 (4.5-10.0)
[2023-10-24 04:38] LABS: Triglycerides 84 mg/dL (<150)
[2023-10-24 04:40] LABS: Alanine Aminotransferase 32 U/L (6-35); Albumin Level 3.8 g/dL (3.5-5.1); Alkaline Phosphatase 87 U/L (38-126); Anion Gap 10 mmol/L (4-12); Aspartate Amino Transferase 31 U/L (14-36); Bilirubin,Total 0.7 mg/dL (0.2-1.3); Blood Urea Nitrogen 17 mg/dL (7-17); Calcium 8.9 mg/dL (8.4-10.2); Carbon Dioxide 26 mmol/L (22-30); Chloride 102 mmol/L (98-107); Estimated CRCL calculation 76 ml/min; Estimated Glomerular Filt Rate > 60; Glucose 117 mg/dL (65-110); Potassium 3.6 mmol/L (3.4-5.0); Sodium 138 mmol/L (137-145)
[2023-10-24] MEDS: METOPROLOL TARTRATE INJ 5 MG/5 ML VIAL IV PUSH (04:48)
--- NOTE | 2023-10-24 05:09 | ECG_ITS ---
Test Date: 2023-10-24 05:18:30 Measurements Intervals [place] Rate: 143 P: -4 CO: 84 QRS: 7 QRSD: 128 T: 126 QT: 330 QTc: 509 Interpretive Statements ATRIAL FLUTTER/TACHYCARDIA WITH RAPID VENTRICULAR RESPONSE INTRAVENTRICULAR CONDUCTION DELAY LEFT VENTRICULAR HYPERTROPHY AND ST-T CHANGE ABNORMAL ECG Compared to ECG 10/22/2023 16:02:35 NO SIGNIFICANT CHANGE Electronically Signed On 10-24-2023 06:52:30 CDT by Casey Lopez D.O.
[2023-10-24] MEDS: CENTRAL LINE FLUSH 10 ML IV PUSH (05:10)
[2023-10-24] MEDS: AMIODARONE HCL 200 MG TABLET PO (05:43)
[2023-10-24] MEDS: METOPROLOL TARTRATE 50 MG TAB PO (05:43)
[2023-10-24] MEDS: ENOXAPARIN 40 MG/0.4 ML SYRINGE SUB-Q (08:49)
[2023-10-24] MEDS: levETIRAcetam 500MG/NACL 100ML 500 MG/100 ML BAG 400 MG IVPB (08:49)
[2023-10-24] MEDS: PANTOPRAZOLE SODIUM IV 40 MG VIAL IV PUSH (08:49)
[2023-10-24] MEDS: VENLAFAXINE HCL XR 75 MG CAP.ER.24H 150 MG PO (08:49)
--- NOTE | 2023-10-24 08:49 | PM.IMPN ---
Progress Note: A&P Assessment and Plan (1) NSTEMI (non-ST elevated myocardial infarction): Code(s): I21.4 - Non-ST elevation (NSTEMI) myocardial infarction Status: Acute (2) RANI (acute kidney injury): Code(s): N17.9 - Acute kidney failure, unspecified Status: Acute Plan Patient presented with VFib arrest was defibrillated in the field given amiodarone to 1 infusion 2 rounds of CPR before return to spontaneous circulation. CPR was started after EMS arrived at home which was few minutes after they were called. CT scan of the brain with no acute intracranial findings. CT cervical spine with no acute osseous abnormality of the cervical spine. Patient completed targeted temperature management and completed rewarming. Cardiology was consulted. Plastic Top Assembler recommended transfer to facility with EP Services in light of her VF arrest secondary prevention ICD is indicated. Discussed multiple times with tertiary care center and was accepted at [facility] by Dr. Dumas. Acute respiratory failure CTA chest abdomen pelvis with no PE bilateral atelectatic changes in the upper lobes bibasilar subsegmental pneumonia more on the right side cardiomegaly with LVH no acute abdominal process with no evidence of appendicitis diverticulitis or intestinal obstruction. Respiratory failure related to cardiac arrest pneumonia was placed on mechanical ventilation. Patient extubated 10/22/2023 . Repeat chest x-ray with improving hazy bibasilar perihilar airspace disease. Severe sepsis due to pneumonia started on azithromycin ceftriaxone and vancomycin 10/17/2023 RANI with creatinine up to 1.5 resolved and back to baseline Atrial flutter intermittent since 10/22/2023 was initiated on amiodarone IV has been transition to oral amiodarone now Hypertension Elevated troponin to 0.097. Echo with EF more than 70% left ventricular size and chamber size normal severe concentric left ventricular wall thickness grade 2 diastolic dysfunction. On heparin infusion which has now been stopped. Echo finding consistent with hypertrophic cardiomyopathy on aspirin and metoprolol Elevated transaminases: Due to shock liver hypoperfusion. Transaminitis has resolved. Patient has also been placed on Keppra for seizure prophylaxis Dysphagia modified barium swallow with trace amount of flash laryngeal penetration without aspiration with uncontrolled thin liquids. DVT prophylaxis enoxaparin Code status full code Disposition patient left against medical advice despite multiple attempts of counseling. Family at bedside as well Subjective Date/time seen: 10/24/23 08:49 Interval history: Chart reviewed. Patient presented with VFib arrest was defibrillated in the field given amiodarone to 1 infusion 2 rounds of CPR before return to spontaneous circulation. CPR was started after EMS arrived at home which was few minutes after they were called. CT scan of the brain with no acute intracranial findings. CT cervical spine with no acute osseous abnormality of the cervical spine. Patient completed targeted temperature management and completed rewarming. Cardiology was consulted. Plastic Top Assembler recommended transfer to facility with EP Services in light of her VF arrest secondary prevention ICD is indicated. Discussed multiple times with tertiary care center and was accepted at [facility] by Dr. Dumas. Acute respiratory failure CTA chest abdomen pelvis with no PE bilateral atelectatic changes in the upper lobes bibasilar subsegmental pneumonia more on the right side cardiomegaly with LVH no acute abdominal process with no evidence of appendicitis diverticulitis or intestinal obstruction. Respiratory failure related to cardiac arrest pneumonia was placed on mechanical ventilation. Patient extubated 10/22/2023 . Repeat chest x-ray with improving hazy bibasilar perihilar airspace disease. Severe sepsis due to pneumonia started on azithromycin ceftriaxone and vancomycin 10/17/2023 RANI with creat
--- NOTE | 2023-10-24 10:29 | PM.PNCARD ---
Progress Note: A&P Assessment and Plan (1) Cardiac arrest: Code(s): I46.9 - Cardiac arrest, cause unspecified Status: Acute Assessment and Plan: Possibly related to arrhythmia from possible hypertrophic cardiomyopathy, apical variant. Eventual cardiac catheterization and electrophysiology evaluation plus/minus cardiac MRI. Will need transfer to facility with EP services - in light of her VF arrest secondary prevention ICD is indicated. Transfer to [place] has been initiated. (2) Essential hypertension: Code(s): I10 - Essential (primary) hypertension Status: Acute Assessment and Plan: Continue Metoprolol (3) Hypokalemia: Code(s): E87.6 - Hypokalemia Status: Acute Assessment and Plan: Corrected (4) Acute respiratory failure: Code(s): J96.00 - Acute respiratory failure, unspecified whether with hypoxia or hypercapnia Status: Acute Assessment and Plan: Extubated (5) Atrial flutter: Code(s): I48.92 - Unspecified atrial flutter Status: Acute Assessment and Plan: Went back into atrial flutter this morning. Will place her back on IV amiodarone for the time being and continue her p.o. amio as well, though do not anticipate intermediate use of amiodarone.. Decrease metoprolol to 25mg q12. Subjective Date/time seen: 10/24/23 10:29 Interval history: Reason for visit: Cardiac arrest HPI: This is a 53-year-old woman I am seeing at the request of the hospitalist because of a ventricular fibrillation arrest which occurred outside of the hospital yesterday evening. The patient was in her home apparently with her daughter visiting and was found to be unresponsive by the daughter who left the room in came back a short time later. 911 was called and she was found to be in ventricular fibrillation and resuscitation efforts ensued. She had 2 rounds of ACLS protocol with CPR, defibrillation and epinephrine before spontaneous circulation was restored. She was brought to the emergency room at [place] where she was intubated and placed on ventilator support. She had 4 electrocardiograms done in the emergency room none of which show evidence of ST elevation [place]. I was contacted last night on the phone about the situation at that point. Since there was no evidence of STEMI the decision was made not to bring her to the cardiac catheterization lab as an emergency. She apparently does not have any prior cardiac history she does have a history of significant hypertension and is obese with BMI of 37. There were some questionable mention in the chart of sleep apnea. The patient has electrocardiograms and my review demonstrate impressive evidence of left ventricular hypertrophy with secondary repolarization abnormality. Troponin levels are slightly elevated at 0.097. Echocardiogram being done at bedside demonstrates impressive left ventricular hypertrophy with asymmetrical septal thickening. The study is being done as I entered the room to see her so obviously I have not performed a formal reading at this point. Since she is intubated on the ventilator in the ICU and on hypothermia protocol obviously no additional history is available at this time Date of service 10/18: Out of hospital VFib arrest. 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 She does not have LVOT gradient by echo. Patient is neurologically improved off of sedation, not following commands yet but moving all 4 extremities. Date of service 10/20/2023: She is awake and alert and oriented and follows commands when sedation is off. Precedex restarted though secondary to agitation. Rhythm stable Date of service 10/21/2023: Remains intubated and on Precedex. Date of service 10/21: Just extubated. Tele stable. Date of service 10/23/2023: Had a few hours of atrial flutter yesterday which did convert with amiodarone. She remains on amiodar
[2023-10-24] MEDS: AMIODARONE 360 MG/D5W 200 ML 360 MG/200 ML BAG 33.33 MG IV CONT (11:27)
[2023-10-24] MEDS: AMIODARONE 150 MG/D5W 100 ML 150 MG/100 ML BAG 600 MG IV CONT (11:28)
[2023-10-24 11:47] LABS: Anion Gap 8 mmol/L (4-12); Blood Urea Nitrogen 21 mg/dL (7-17); Calcium 8.8 mg/dL (8.4-10.2); Carbon Dioxide 26 mmol/L (22-30); Chloride 103 mmol/L (98-107); Estimated CRCL calculation 76 ml/min; Estimated Glomerular Filt Rate > 60; Glucose 146 mg/dL (65-110); Potassium 4.2 mmol/L (3.4-5.0); Sodium 137 mmol/L (137-145)
[2023-10-24 13:11] LABS: Glucose Point of Care 131 mg/dl (65-105)
--- NOTE | 2023-10-24 13:21 | PC.NURSE ---
Patient has family at bedside and requesting to leave AMA to go to [place] for treatment. HENRY Corey and myself at bedside talking with family and patient about risks of leaving AMA. Family discussion after Leora and I left to discuss further care. At this time patient has agreed to staying with Amiodarone gtt running. Family and patient will let me know their decision if they are staying or leaving. Dr Herrera aware.
--- NOTE | 2023-10-24 14:15 | PC.NURSE ---
patient refusing to have 1400 vital signs done to document amiodarone gtt vitals. MD aware and admission discharge rn aware.
--- NOTE | 2023-10-24 14:31 | PCNFU ---
Nutrition Follow-Up Complete: Increased protein energy needs related to mechanical ventilation as evidenced by need for full tube feeding. Discontinue, TF stopped (New) Inadequate oral intake related to variable appetite as evidenced by intake meeting <75% of meals. Goal: Meet estimated protein energy needs Pt current nutrition is Heart-healthy, minced & moist level 5 diet with Ensure Compact BID. Nutrition recommendation: Continue with a heart-healthy diet and Ensure Compact BID. Last recorded weight is 102.2 kg. Weight down 17 lbs/7% x 7 days. Fluid could have been contributing, elevated BNP on 10/22 Bowel Motility: BM: 10/23 Labs Reviewed: glucose 117, ProBNP 98179 Meds Noted: Dulcolax, Protonix, MiraLAX, Xanax Skin: no breakdown per EHR Additional Notes: Patient consumed 50% of breakfast this morning. No edema noted. No nausea, vomiting, diarrhea, constipation documented. Monitor diet tolerance/PO intake, labs, weights, plan of care Reassess in 5 days
--- NOTE | 2023-10-24 15:29 | PCOTNOTE ---
Received OT orders. Per RN, after PT eval, pt almost passed out and they are running stat labs. RN asks to hold pt for the afternoon. Will continue to follow.
--- NOTE | 2023-10-24 16:21 | PM.DS ---
DS: Admitting Diagnosis Discharge Date 10/24/23 Admitting Diagnosis Cardiac arrest DS: Discharge Diagnosis Discharge Diagnosis (1) NSTEMI (non-ST elevated myocardial infarction): Code(s): I21.4 - Non-ST elevation (NSTEMI) myocardial infarction Status: Acute (2) RANI (acute kidney injury): Code(s): N17.9 - Acute kidney failure, unspecified Status: Acute (3) Atrial flutter: Code(s): I48.92 - Unspecified atrial flutter Status: Acute (4) Cardiac arrest: Code(s): I46.9 - Cardiac arrest, cause unspecified Status: Acute DS: Summary Hospital Course Hospital Course: Patient presented with VFib arrest was defibrillated in the field given amiodarone to 1 infusion 2 rounds of CPR before return to spontaneous circulation. CPR was started after EMS arrived at home which was few minutes after they were called. CT scan of the brain with no acute intracranial findings. CT cervical spine with no acute osseous abnormality of the cervical spine. Patient completed targeted temperature management and completed rewarming. Cardiology was consulted. Electrical Cad Designer recommended transfer to facility with EP Services in light of her VF arrest secondary prevention ICD is indicated. Discussed multiple times with tertiary care center and was accepted at [place] by Dr. Dumas on 10/24/2023. With her echocardiographic finding of EF more than 70% left ventricular size and chamber size normal CV wall thickness suspicious for hypertrophic cardiomyopathy apical variant. She will need further workup with cardiac MRI versus cardiac catheterization followed by ICD placement for secondary prevention. Acute respiratory failure CTA chest abdomen pelvis with no PE bilateral atelectatic changes in the upper lobes bibasilar subsegmental pneumonia more on the right side cardiomegaly with LVH no acute abdominal process with no evidence of appendicitis diverticulitis or intestinal obstruction. Respiratory failure related to cardiac arrest pneumonia was placed on mechanical ventilation. Patient extubated 10/22/2023 . Repeat chest x-ray with improving hazy bibasilar perihilar airspace disease. Severe sepsis due to pneumonia started on azithromycin ceftriaxone and vancomycin 10/17/2023. Finish antibiotic course during the hospital stay RANI with creatinine up to 1.5 resolved and back to baseline Atrial flutter intermittent since 10/22/2023 was initiated on amiodarone IV has been transition to oral amiodarone now. Back to sinus rhythm by the time of discharge Hypertension Elevated troponin to 0.097. Echo with EF more than 70% left ventricular size and chamber size normal severe concentric left ventricular wall thickness grade 2 diastolic dysfunction. On heparin infusion which has now been stopped. Echo finding consistent with hypertrophic cardiomyopathy on aspirin and metoprolol Elevated transaminases: Due to shock liver hypoperfusion. Transaminitis has resolved. Patient has also been placed on Keppra for seizure prophylaxis Dysphagia modified barium swallow with trace amount of flash laryngeal penetration without aspiration with uncontrolled thin liquids. DVT prophylaxis enoxaparin Code status full code Disposition patient left against medical advice despite multiple attempts of counseling. Family at bedside as well Time Spent with Patient Time attestation: Total time spent providing and/or coordinating discharge services: Exam Narrative: General: Intubated and sedated in no acute distress HEENT:? Pupils are more reactive bilaterally this morning, sclera is clear, ETT in place Neck:? Supple Respiratory:? Coarse breath sounds bilaterally decreased at bases, adequate air entry, no wheezing Cardiac:? S1-S2 normal, regular rate and rhythm Abdomen:? Soft, nontender, nondistended, hypoactive bowel sounds Extremities:? Trace edema, palpable pedal pulses Neuro:? Patient is intubated sedated, on holding propofol she follows commands with
[2023-10-29 13:56] LABS: Glucose Point of Care 151 mg/dl (65-105)
== END 2023-10-24 15:45 | disposition left against medical advice (07) | DRG 720 ==
LOC: ANHED 22:14 → ANHICU 22:39 → ANHIMU 10-23 23:31
PROVIDERS: Internal Medicine; Admitting Provider General Practice; Emergency Provider Student in an Organized Health Care Education/Training Program; PCP Internal Medicine; Visit Provider Internal Medicine
DX: A41.9 Sepsis, unspecified organism (principal); R65.20 Severe sepsis without septic shock; I21.4 Non-ST elevation (NSTEMI) myocardial infarction; J18.9 Pneumonia, unspecified organism; I46.9 Cardiac arrest, cause unspecified; E87.6 Hypokalemia; I49.01 Ventricular fibrillation; N17.9 Acute kidney failure, unspecified; I48.92 Unspecified atrial flutter; J96.02 Acute respiratory failure with hypercapnia; F41.9 Anxiety disorder, unspecified; R13.10 Dysphagia, unspecified; I11.0 Hypertensive heart disease with heart failure; I50.9 Heart failure, unspecified; I42.2 Other hypertrophic cardiomyopathy; E87.8 Other disorders of electrolyte and fluid balance, not elsewhere classified; E66.9 Obesity, unspecified; Z68.36 Body mass index [BMI] 36.0-36.9, adult; Z87.891 Personal history of nicotine dependence
CPT/HCPCS: 31500; 36415; 36600; 70450; 71045; 71275; 72125; 74177; 80048; 80053; 80061; 80202; 80307; 81001; 82375; 82550; 82805; 82948; 83036; 83050; 83605; 83690; 83735; 83880; 84100; 84439; 84443; 84478; 84480; 84484; 84703; 85025; 85380; 85610; 85730; 86140; 86738; 86850; 86900; 86901; 87040; 87070; 87086; 87205; 87449; 87637; 87641; 87899; 92526; 92610; 92611; 93005; 94002; 94003; 94640; 96365; 96366; 96367; 96368; 97116; 97161; 99291; A9270; C1751; C8929; J0282; J0330; J0360; J0456; J0696; J1644; J1650; J1940; J1953; J2060; J2250; J2470; J2704; J3010; J3370; J3475; J3480; J7030; J7042; J7120; Q9957; Q9967